=== PATIENT | female | born 1995 | race American Indian/Alaskan Native ===

== ENCOUNTER 2020-12-05 11:42 | Outpatient (CLI) | payer OTHER ==
[2020-12-05 12:50] LABS: Hematocrit 30.2 % (30.3-42.9); Hemoglobin 10.5 gm/dl (10.1-14.3); Mean Corpuscular HGB Conc 35 % (30-34); Mean Corpuscular Volume 91 fl (79-97); Platelet Count 330 K/mm3 (140-440); Red Cell Distribution Width 13.5 % (13.2-15.2)
[2020-12-05 13:17] LABS: Alanine Aminotransferase 9 units/L (7-56)
[2020-12-05 14:02] LABS: Bacteria,Urine 1+ /HPF (Negative); Bilirubin,Urine NEG (Negative); Blood,Urine NEG (Negative); Color,Urine Straw (Yellow); Protein,Urine <15 mg/dL mg/dL (Negative); Urobilinogen,Urine < 2.0 mg/dL (<2.0)
[2020-12-05 14:10] VITALS: BP 127/85
[2020-12-05 14:33] LABS: Uric Acid 4.7 mg/dL (3.5-7.6)
== END 2020-12-05 14:38 | disposition home or self-care (01) ==
LOC: TRG 11:42 → APU 11:44 → TRG 14:38
PROVIDERS: ATTEND Obstetrics & Gynecology
DX: O26.893 Other specified pregnancy related conditions, third trimester (principal); R60.0 Localized edema; M54.5 Low back pain; Z3A.32 32 weeks gestation of pregnancy
CPT/HCPCS: 36415; 59025; 81001; 82565; 83615; 84450; 84460; 84550; 85027

== ENCOUNTER 2020-12-17 16:11 | Observation (INO) | payer BC, OTHER ==
[2020-12-17] MEDS ORDERED: LACTATED RINGERS 500 ML IV ONE (18:31)
[2020-12-17 18:42] LABS: Bilirubin,Urine NEG (Negative); Blood,Urine NEG (Negative); Color,Urine Yellow (Yellow); Mucus,Urine FEW /HPF
[2020-12-17 18:45] LABS: Creatinine,Urine 180.9 mg/dL (0.1-20.0); Protein/Creatinine Ratio,Urine 0.16
--- NOTE | 2020-12-17 18:47 | History and Physical Report ---
History of Present Illness Date of examination: 12/17/20 Chief complaint: lower extremity swelling History of present illness: 25yo at 34w1d presents with lower extremity swelling. She denies TIJERINA, RUQ pain, or changes to vision. Swelling significantly worsened over the last 2-3 days. No additional complaints. Past History Past Medical History: no pertinent history Past Surgical History: no surgical history Social history: no significant social history - Obstetrical History Expected Date of Delivery: 01/27/21 Actual Gestation: 34 Week(s) 1 Day(s) : 1 Medications and Allergies Allergies Allergy/AdvReac Type Severity Reaction Status Date / Time No Known Allergies Allergy Unverified 12/05/20 12:14 Active Meds: Active Medications Lactated Ringer's (Lactated Ringers) 500 mls @ 999 mls/hr IV BOLUS ONE Stop: 12/17/20 19:01 Review of Systems Musculoskeletal: other (swelling) - Vital Signs Vital signs: Vital Signs Pulse BP 106 H 129/81 12/17/20 17:18 12/17/20 17:18 Temp Pulse Resp BP Pulse Ox 98.1 F 98 H 16 134/95 12/17/20 17:30 12/17/20 18:30 12/17/20 17:30 12/17/20 18:30 - Physical Exam Cardiovascular: Regular rate Lungs: Positive: Clear to auscultation Abdomen: Positive: normal appearance, soft Uterus: Positive: other (gravid) Extremities: Positive: edema - Obstetrical FHR: auscultation normal Uterine Contraction Monitor Mode: External Uterine Contraction Pattern: Absent Results Result Diagrams: 12/17/20 18:59 12/17/20 18:59 All other labs normal. Assessment and Plan - Patient Problems (1) Elevated blood pressure affecting in third trimester, antepartum Current Visit: Yes Status: Acute Plan to address problem: Ghtn vs PreEclampsia vs PreEclampsia with SF -no hx of hypertension this -assymptomatic for s/s of Severe features -PIH labs/protein-creatine ratio/24hr urine -continuous monitoring -consider Beta if indicated -23h obs PNC: per [facility] Labs on chart.
[2020-12-17 19:41] LABS: Alanine Aminotransferase 12 units/L (7-56); Uric Acid 5.2 mg/dL (3.5-7.6)
[2020-12-17 19:42] LABS: Hematocrit 33.4 % (30.3-42.9); Hemoglobin 11.2 gm/dl (10.1-14.3); Mean Corpuscular HGB Conc 34 % (30-34); Mean Corpuscular Volume 93 fl (79-97); Platelet Count 358 K/mm3 (140-440); Red Cell Distribution Width 13.6 % (13.2-15.2)
[2020-12-18] MEDS: BETAMET ACET/BETAMET NA PH 6 MG/ML INJ 5 ML MDV IM SCH (09:17)
--- NOTE | 2020-12-18 13:04 | Progress Note ---
Assessment and Plan A: IUP at 34w2d s/p 1 dose of betamethasone Gestational Hypertension vs Preeclampsia undergoing 24 hour urine collection P: Follow up 24 hour urine collection this evening (complete at 1845 pm) Pt desires to go home tonight if possible and return for second dose of betamethasone tomorrow morning Subjective - Subjective Date of service: 12/18/20 Principal diagnosis: GHTN rule out preeclampsia, IUP at 34w2d Interval history: Pt without complaints- denies headache, blurry vision, RUQ pain or scotomata. No obstetric complaints. Patient reports: movement normal, no new complaints, no loss of fluid, no vaginal bleeding, no contractions Objective - Vital Signs Vital Signs: Vital Signs - 12hr 12/18/20 12/18/20 12/18/20 01:04 01:08 01:13 Temperature Pulse Rate 87 83 85 Blood Pressure 129/88 O2 Sat by Pulse 98 97 Oximetry 12/18/20 12/18/20 12/18/20 01:19 01:22 01:24 Temperature 97.7 F Pulse Rate 86 85 90 Blood Pressure 132/83 O2 Sat by Pulse 99 97 Oximetry 12/18/20 12/18/20 12/18/20 01:29 01:34 01:39 Temperature Pulse Rate 89 89 88 Blood Pressure 123/79 O2 Sat by Pulse 97 96 97 Oximetry 12/18/20 12/18/20 12/18/20 01:44 01:49 01:54 Temperature Pulse Rate 92 H 94 H 88 Blood Pressure 125/82 O2 Sat by Pulse 98 97 97 Oximetry 12/18/20 12/18/20 12/18/20 01:59 02:11 02:13 Temperature Pulse Rate 94 H 88 103 H Blood Pressure 124/74 O2 Sat by Pulse 98 93 Oximetry 12/18/20 12/18/20 12/18/20 02:16 02:19 02:20 Temperature Pulse Rate 105 H 95 H 94 H Blood Pressure 129/94 O2 Sat by Pulse 98 94 Oximetry 12/18/20 12/18/20 12/18/20 02:21 02:26 02:31 Temperature Pulse Rate 89 85 82 Blood Pressure O2 Sat by Pulse 97 99 99 Oximetry 12/18/20 12/18/20 12/18/20 02:34 02:36 02:41 Temperature Pulse Rate 88 86 80 Blood Pressure 135/94 O2 Sat by Pulse 99 98 Oximetry 12/18/20 12/18/20 12/18/20 02:46 02:50 02:51 Temperature Pulse Rate 84 86 82 Blood Pressure 161/107 O2 Sat by Pulse 99 93 98 Oximetry 12/18/20 12/18/20 12/18/20 02:56 03:01 03:04 Temperature Pulse Rate 87 89 90 Blood Pressure 152/92 133/89 O2 Sat by Pulse 96 96 Oximetry 12/18/20 12/18/20 12/18/20 03:06 03:11 03:16 Temperature Pulse Rate 84 89 86 Blood Pressure O2 Sat by Pulse 98 95 96 Oximetry 12/18/20 12/18/20 12/18/20 03:19 03:21 03:26 Temperature Pulse Rate 82 81 85 Blood Pressure 124/85 O2 Sat by Pulse 97 96 Oximetry 12/18/20 12/18/20 12/18/20 03:31 03:34 03:36 Temperature Pulse Rate 85 87 87 Blood Pressure 116/80 O2 Sat by Pulse 96 93 96 Oximetry 12/18/20 12/18/20 12/18/20 03:41 03:46 03:49 Temperature Pulse Rate 88 86 87 Blood Pressure 130/81 O2 Sat by Pulse 95 96 92 Oximetry 12/18/20 12/18/20 12/18/20 03:51 03:56 03:58 Temperature Pulse Rate 89 98 H 90 Blood Pressure O2 Sat by Pulse 95 96 94 Oximetry 12/18/20 12/18/20 12/18/20 04:01 04:04 04:06 Temperature Pulse Rate 94 H 86 94 H Blood Pressure 132/87 O2 Sat by Pulse 96 96 Oximetry 12/18/20 12/18/20 12/18/20 04:11 04:16 04:19 Temperature Pulse Rate 91 H 91 H 92 H Blood Pressure 124/83 O2 Sat by Pulse 98 98 Oximetry 12/18/20 12/18/20 12/18/20 04:21 04:26 04:31 Temperature Pulse Rate 96 H 88 89 Blood Pressure O2 Sat by Pulse 98 98 98 Oximetry 12/18/20 12/18/20 12/18/20 04:34 04:36 04:41 Temperature Pulse Rate 91 H 87 88 Blood Pressure 126/87 O2 Sat by Pulse 98 98 Oximetry 12/18/20 12/18/20 12/18/20 04:46 04:49 04:51 Temperature Pulse Rate 85 83 92 H Blood Pressure 123/87 O2 Sat by Pulse 98 97 Oximetry 12/18/20 12/18/20 12/18/20 04:56 05:01 05:04 Temperature Pulse Rate 89 85 86 Blood Pressure 125/89 O2 Sat by Pulse 98 98 Oximetry 12/18/20 12/18/20 12/18/20 05:06 05:11 05:16 Temperature Pulse Rate 88 79 84 Blood Pressure O2 Sat by Pulse 98 97 96 Oximetry 12/18/20 12/18/20 12/18/20 05:19 05:21 05:26 Temperature Pulse Rate 88 85 86 Blood Pressure 115/81 O2 Sat by Pulse 97 97 Oximetry 12/18/20 12/18/20 12/18/20 05:31 05:34 05:36 Temperature Pulse Rate 83 87 82 Blood Pressure 130/85 O2 Sat by Pulse 98 98 Oximetry 12/18/20 12/18/20 12/18/20 05:41 05:46 05:49 Temperature Pulse Rate 94 H 82 87 Blood Pressure 128/83 O2 Sat by Pulse 98 98 Oximetry 12/18/20 12/18/20 12/18/20 05:51 05:56 06:01 Temperature Pulse Rate 86 106 H 81 Blood Pressure O2 Sat by Pulse 97 96 97 Oximetry 12/18/20 12/18/20 12/18/20 06:04 06:06 06:11 Temperature Pulse Rate 88 85 86 Blood Pressure 124/82 O2 Sat by Pulse 96 96 Oximetry 12/18/20 12/18/20 12/18/20 06:16 06:19 06:21 Temperature Pulse Rate 88 87 84 Blood Pressure 127/82 O2 Sat by Pulse 97 95 Oximetry 12/18/20 12/18/20 12/18/20 06:23 06:26 06:31 Temperature Pulse Rate 89 88 87 Blood Pressure O2 Sat by Pulse 94 96 97 Oximetry 12/18/20 12/18/20 12/18/20 06:34 06:36 06:41 Temperature Pulse Rate 88 87 89 Blood Pressure 124/81 O2 Sat by Pulse 97 98 Oximetry 12/18/20 12/18/20 12/18/20 06:46 06:49 06:51 Temperature Pulse Rate 90 85 88 Blood Pressure 127/88 O2 Sat by Pulse 97 97 Oximetry 12/18/20 12/18/20 12/18/20 06:56 07:01 07:04 Temperature Pulse Rate 89 89 90 Blood Pressure 121/89 O2 Sat by Pulse 96 97 Oximetry 12/18/20 12/18/20 12/18/20 07:06 07:11 07:16 Temperature Pulse Rate 84 89 93 H Blood Pressure O2 Sat by Pulse 97 97 97 Oximetry 12/18/20 12/18/20 12/18/20 07:19 07:21 07:26 Temperature Pulse Rate 88 90 89 Blood Pressure 120/87 O2 Sat by Pulse 97 97 Oximetry 12/18/20 12/18/20 12/18/20 07:31 07:34 07:36 Temperature Pulse Rate 86 90 102 H Blood Pressure 135/88 O2 Sat by Pulse 97 98 Oximetry 12/18/20 12/18/20 12/18/20 07:41 07:46 07:49 Temperature Pulse Rate 91 H 90 93 H Blood Pressure 120/82 O2 Sat by Pulse 97 97 Oximetry 12/18/20 12/18/20 12/18/20 07:51 07:56 08:01 Temperature Pulse Rate 97 H 90 88 Blood Pressure O2 Sat by Pulse 98 97 96 Oximetry 12/18/20 12/18/20 12/18/20 08:04 08:06 08:11 Temperature Pulse Rate 90 95 H 94 H Blood Pressure 131/84 O2 Sat by Pulse 97 96 Oximetry 12/18/20 12/18/20 12/18/20 08:16 08:19 08:21 Temperature Pulse Rate 94 H 90 106 H Blood Pressure 129/85 O2 Sat by Pulse 96 100 Oximetry 12/18/20 12/18/20 12/18/20 08:28 08:31 08:33 Temperature Pulse Rate 116 H 100 H 102 H Blood Pressure 122/87 O2 Sat by Pulse 95 98 Oximetry 12/18/20 12/18/20 12/18/20 08:34 08:38 08:43 Temperature Pulse Rate 104 H 108 H 103 H Blood Pressure 112/82 O2 Sat by Pulse 97 98 Oximetry 12/18/20 12/18/20 12/18/20 08:48 08:49 08:53 Temperature Pulse Rate 97 H 99 H 101 H Blood Pressure 139/91 O2 Sat by Pulse 98 98 Oximetry 12/18/20 12/18/20 12/18/20 08:58 09:03 09:04 Temperature Pulse Rate 93 H 107 H 96 H Blood Pressure O2 Sat by Pulse 97 98 89 Oximetry 12/18/20 12/18/20 12/18/20 09:05 09:08 09:13 Temperature Pulse Rate 97 H 100 H 99 H Blood Pressure 133/92 O2 Sat by Pulse 100 98 Oximetry 12/18/20 12/18/20 12/18/20 09:15 09:18 09:19 Temperature Pulse Rate 98 H 104 H 96 H Blood Pressure 125/78 O2 Sat by Pulse 93 98 Oximetry 12/18/20 12/18/20 12/18/20 09:23 09:28 09:33 Temperature Pulse Rate 100 H 99 H 111 H Blood Pressure O2 Sat by Pulse 98 99 97 Oximetry 12/18/20 12/18/20 12/18/20 09:34 09:38 09:43 Temperature Pulse Rate 102 H 98 H 100 H Blood Pressure 131/84 O2 Sat by Pulse 99 99 Oximetry 12/18/20 12/18/20 12/18/20 09:48 09:49 09:53 Temperature Pulse Rate 103 H 100 H 102 H Blood Pressure 132/87 O2 Sat by Pulse 97 98 Oximetry 12/18/20 12/18/20 12/18/20 09:58 10:03 10:04 Temperature Pulse Rate 100 H 94 H 96 H Blood Pressure 127/86 O2 Sat by Pulse 98 99 Oximetry 12/18/20 12/18/20 12/18/20 10:08 10:13 10:35 Temperature Pulse Rate 95 H 94 H 72 Blood Pressure 136/86 O2 Sat by Pulse 98 99 95 Oximetry 12/18/20 12/18/20 12/18/20 10:40 10:45 10:49 Temperature Pulse Rate 112 H 104 H 100 H Blood Pressure 130/80 O2 Sat by Pulse 98 97 Oximetry 12/18/20 12/18/20 12/18/20 10:50 10:55 11:00 Temperature Pulse Rate 98 H 101 H 97 H Blood Pressure O2 Sat by Pulse 98 97 96 Oximetry 12/18/20 12/18/20 12/18/20 11:04 11:05 11:10 Temperature Pulse Rate 97 H 95 H 96 H Blood Pressure 126/80 O2 Sat by Pulse 97 97 Oximetry 12/18/20 12/18/20 12/18/20 11:15 11:19 11:20 Temperature Pulse Rate 93 H 95 H 100 H Blood Pressure 127/84 O2 Sat by Pulse 98 95 Oximetry 12/18/20 12/18/20 12/18/20 11:25 11:30 11:33 Temperature Pulse Rate 105 H 95 H 103 H Blood Pressure O2 Sat by Pulse 96 96 93 Oximetry 12/18/20 12/18/20 12/18/20 11:34 11:35 11:40 Temperature Pulse Rate 96 H 95 H 91 H Blood Pressure 123/84 O2 Sat by Pulse 97 98 Oximetry 12/18/20 12/18/20 12/18/20 11:42 11:45 11:49 Temperature Pulse Rate 96 H 90 99 H Blood Pressure 120/84 O2 Sat by Pulse 94 97 Oximetry 12/18/20 12/18/20 12/18/20 11:50 11:55 12:00 Temperature Pulse Rate 102 H 97 H 96 H Blood Pressure O2 Sat by Pulse 97 96 97 Oximetry 12/18/20 12/18/20 12/18/20 12:04 12:05 12:10 Temperature Pulse Rate 86 84 96 H Blood Pressure 155/107 O2 Sat by Pulse 98 99 Oximetry 12/18/20 12/18/20 12/18/20 12:12 12:15 12:19 Temperature Pulse Rate 96 H 102 H 101 H Blood Pressure 138/86 137/83 O2 Sat by Pulse 98 Oximetry 12/18/20 12/18/20 12/18/20 12:20 12:25 12:30 Temperature Pulse Rate 106 H 103 H 97 H Blood Pressure O2 Sat by Pulse 97 97 98 Oximetry 12/18/20 12/18/20 12/18/20 12:34 12:35 12:36 Temperature Pulse Rate 100 H 106 H 112 H Blood Pressure 136/85 O2 Sat by Pulse 97 93 Oximetry 12/18/20 12/18/20 12/18/20 12:40 12:45 12:49 Temperature Pulse Rate 102 H 108 H 104 H Blood Pressure 130/81 O2 Sat by Pulse 96 98 Oximetry 12/18/20 12/18/20 12:50 12:55 Temperature Pulse Rate 111 H 113 H Blood Pressure O2 Sat by Pulse 97 96 Oximetry - Exam Breasts: deferred Abdomen: Present: soft (gravid ) FHR: auscultation normal - Labs Labs: Abnormal Labs 12/17/20 12/17/20 12/17/20 18:59 18:59 Unknown RBC 3.60 L Lactate Dehydrogenase 204 H Urine Creatinine 180.9 H Urine Total Protein 29 H Laboratory Results - last 24 hr 12/17/20 12/17/20 12/17/20 18:59 18:59 Unknown WBC 8.5 RBC 3.60 L Hgb 11.2 Hct 33.4 MCV 93 MCH 31 MCHC 34 RDW 13.6 Plt Count 358 Creatinine 0.6 Estimated GFR > 60 Uric Acid 5.2 AST 14 ALT 12 Lactate Dehydrogenase 204 H Urine Color Yellow Urine Turbidity Slightly-cloudy Urine pH 7.0 Ur Specific [place] 1.019 Urine Protein 30 mg/dl Urine Glucose (UA) Neg Urine Ketones Neg Urine Blood Neg Urine Nitrite Neg Urine Bilirubin Neg Urine Urobilinogen 2.0 Ur Leukocyte Esterase Sm Urine WBC (Auto) 2.0 Urine RBC (Auto) 1.0 U Epithel Cells (Auto) 11.0 Urine Mucus Few Urine Creatinine Protein/Creatinin Ratio Urine Total Protein 12/17/20 Unknown WBC RBC Hgb Hct MCV MCH MCHC RDW Plt Count Creatinine Estimated GFR Uric Acid AST ALT Lactate Dehydrogenase Urine Color Urine Turbidity Urine pH Ur Specific [place] Urine Protein Urine Glucose (UA) Urine Ketones Urine Blood Urine Nitrite Urine Bilirubin Urine Urobilinogen Ur Leukocyte Esterase Urine WBC (Auto) Urine RBC (Auto) U Epithel Cells (Auto) Urine Mucus Urine Creatinine 180.9 H Protein/Creatinin Ratio 0.16 Urine Total Protein 29 H
[2020-12-18 22:36] LABS: Bacteria,Urine 3+ /HPF (Negative); Bilirubin,Urine NEG (Negative); Blood,Urine SM (Negative); Color,Urine Yellow (Yellow); Mucus,Urine FEW /HPF; Urobilinogen,Urine < 2.0 mg/dL (<2.0)
[2020-12-19] MEDS ORDERED: ACETAMINOPHEN 500 MG TAB PO ONE (02:55)
[2020-12-19] MEDS ORDERED: SIMETHICONE 80 MG CHEW TAB PO ONE (02:56)
--- NOTE | 2020-12-19 07:52 | Progress Note ---
Assessment and Plan - Patient Problems (1) Elevated blood pressure affecting in third trimester, antepartum Current Visit: Yes Status: Acute Plan to address problem: Continue outpatient monitoring of preeclampsia Subjective - Subjective Date of service: 12/19/20 Principal diagnosis: GHTN rule out preeclampsia, IUP at 34w2d Interval history: 25-year-old G1, P0 at 34+ weeks admitted for rule out preeclampsia. The patient has significant improvement in her blood pressures on bedrest. She has completed her betamethasone steroid therapy. The 24-hour urine protein returned with 323 mg. She is currently without any complaints Patient reports: movement normal, no new complaints, no loss of fluid, no vaginal bleeding, no contractions Objective - Vital Signs Vital Signs: Vital Signs - 12hr 12/18/20 12/18/20 12/18/20 19:56 20:01 20:04 Temperature Pulse Rate 101 H 100 H 100 H Respiratory Rate Blood Pressure 129/76 Blood Pressure [Right] O2 Sat by Pulse 97 97 Oximetry 12/18/20 12/18/20 12/18/20 20:06 20:11 20:16 Temperature Pulse Rate 105 H 101 H 98 H Respiratory Rate Blood Pressure Blood Pressure [Right] O2 Sat by Pulse 96 95 96 Oximetry 12/18/20 12/18/20 12/18/20 20:19 20:21 20:22 Temperature 98.3 F Pulse Rate 94 H 96 H Respiratory 17 Rate Blood Pressure 155/91 134/88 Blood Pressure 134/88 [Right] O2 Sat by Pulse 91 96 Oximetry 12/18/20 12/18/20 12/18/20 20:24 20:26 20:31 Temperature Pulse Rate 105 H 96 H 95 H Respiratory Rate Blood Pressure Blood Pressure [Right] O2 Sat by Pulse 94 96 95 Oximetry 12/18/20 12/18/20 12/18/20 20:34 20:36 20:41 Temperature Pulse Rate 94 H 98 H 99 H Respiratory Rate Blood Pressure 133/89 Blood Pressure [Right] O2 Sat by Pulse 95 95 Oximetry 12/18/20 12/18/20 12/18/20 20:46 20:49 20:51 Temperature Pulse Rate 98 H 98 H 98 H Respiratory Rate Blood Pressure 132/85 Blood Pressure [Right] O2 Sat by Pulse 98 0 L 93 Oximetry 05/12/21 05/12/21 05/12/21 20:56 20:57 21:01 Temperature Pulse Rate 94 H 96 H 108 H Respiratory Rate Blood Pressure Blood Pressure [Right] O2 Sat by Pulse 94 94 96 Oximetry 12/18/20 12/18/20 12/18/20 21:04 21:06 21:11 Temperature Pulse Rate 103 H 100 H 97 H Respiratory Rate Blood Pressure 134/92 Blood Pressure [Right] O2 Sat by Pulse 94 97 98 Oximetry 12/18/20 12/18/20 12/18/20 22:05 22:19 22:29 Temperature Pulse Rate 108 H 104 H 102 H Respiratory Rate Blood Pressure 132/80 122/77 Blood Pressure [Right] O2 Sat by Pulse 91 Oximetry 12/18/20 12/18/20 12/18/20 22:34 22:39 22:44 Temperature Pulse Rate 102 H 95 H 107 H Respiratory Rate Blood Pressure 128/84 Blood Pressure [Right] O2 Sat by Pulse 96 97 98 Oximetry 12/18/20 12/18/20 12/18/20 22:49 22:54 22:59 Temperature Pulse Rate 95 H 111 H 103 H Respiratory Rate Blood Pressure 125/79 Blood Pressure [Right] O2 Sat by Pulse 96 96 96 Oximetry 12/18/20 12/18/20 12/18/20 23:04 23:09 23:14 Temperature Pulse Rate 96 H 102 H 98 H Respiratory Rate Blood Pressure 121/75 Blood Pressure [Right] O2 Sat by Pulse 96 96 97 Oximetry 12/18/20 12/18/20 12/18/20 23:19 23:24 23:29 Temperature Pulse Rate 88 89 85 Respiratory Rate Blood Pressure 135/82 Blood Pressure [Right] O2 Sat by Pulse 96 97 96 Oximetry 12/18/20 12/18/20 12/18/20 23:34 23:35 23:39 Temperature 97.9 F Pulse Rate 83 80 83 Respiratory 16 Rate Blood Pressure 137/92 Blood Pressure [Right] O2 Sat by Pulse 96 95 Oximetry 12/18/20 12/18/20 12/18/20 23:44 23:49 23:54 Temperature Pulse Rate 83 81 77 Respiratory Rate Blood Pressure 134/92 Blood Pressure [Right] O2 Sat by Pulse 97 96 95 Oximetry 12/18/20 12/19/20 12/19/20 23:59 00:02 00:04 Temperature Pulse Rate 86 86 83 Respiratory Rate Blood Pressure 127/86 Blood Pressure [Right] O2 Sat by Pulse 95 94 94 Oximetry 12/19/20 12/19/20 12/19/20 00:08 00:09 00:14 Temperature Pulse Rate 80 80 81 Respiratory Rate Blood Pressure Blood Pressure [Right] O2 Sat by Pulse 94 94 94 Oximetry 12/19/20 12/19/20 12/19/20 00:19 00:24 00:29 Temperature Pulse Rate 78 83 78 Respiratory Rate Blood Pressure 126/83 Blood Pressure [Right] O2 Sat by Pulse 94 94 94 Oximetry 12/19/20 12/19/20 12/19/20 00:33 00:34 00:38 Temperature Pulse Rate 78 79 79 Respiratory Rate Blood Pressure 123/82 Blood Pressure [Right] O2 Sat by Pulse 94 94 94 Oximetry 12/19/20 12/19/20 12/19/20 00:39 00:44 00:45 Temperature Pulse Rate 77 83 82 Respiratory Rate Blood Pressure Blood Pressure [Right] O2 Sat by Pulse 95 95 94 Oximetry 12/19/20 12/19/20 12/19/20 00:49 00:50 00:54 Temperature Pulse Rate 80 80 77 Respiratory Rate Blood Pressure 125/81 Blood Pressure [Right] O2 Sat by Pulse 95 94 96 Oximetry 12/19/20 12/19/20 12/19/20 00:57 00:59 01:02 Temperature Pulse Rate 79 82 86 Respiratory Rate Blood Pressure Blood Pressure [Right] O2 Sat by Pulse 94 95 94 Oximetry 12/19/20 12/19/20 12/19/20 01:04 01:09 01:12 Temperature Pulse Rate 80 95 H 80 Respiratory Rate Blood Pressure 127/82 Blood Pressure [Right] O2 Sat by Pulse 95 97 94 Oximetry 12/19/20 12/19/20 12/19/20 01:14 01:18 01:19 Temperature Pulse Rate 88 79 79 Respiratory Rate Blood Pressure Blood Pressure [Right] O2 Sat by Pulse 94 94 94 Oximetry 12/19/20 12/19/20 12/19/20 01:21 01:23 01:24 Temperature Pulse Rate 78 79 78 Respiratory Rate Blood Pressure 109/62 Blood Pressure [Right] O2 Sat by Pulse 94 95 Oximetry 12/19/20 12/19/20 12/19/20 01:29 01:34 01:35 Temperature Pulse Rate 75 76 84 Respiratory Rate Blood Pressure 113/65 Blood Pressure [Right] O2 Sat by Pulse 95 95 94 Oximetry 12/19/20 12/19/20 12/19/20 01:42 01:47 01:49 Temperature Pulse Rate 91 H 87 86 Respiratory Rate Blood Pressure 128/84 Blood Pressure [Right] O2 Sat by Pulse 98 97 Oximetry 12/19/20 12/19/20 12/19/20 01:52 01:57 02:02 Temperature Pulse Rate 83 86 84 Respiratory Rate Blood Pressure Blood Pressure [Right] O2 Sat by Pulse 97 97 96 Oximetry 12/19/20 12/19/20 12/19/20 02:04 02:07 02:12 Temperature Pulse Rate 85 86 87 Respiratory Rate Blood Pressure 136/89 Blood Pressure [Right] O2 Sat by Pulse 95 95 Oximetry 12/19/20 12/19/20 12/19/20 02:17 02:19 02:22 Temperature Pulse Rate 87 89 85 Respiratory Rate Blood Pressure 145/87 Blood Pressure [Right] O2 Sat by Pulse 96 96 Oximetry 12/19/20 12/19/20 12/19/20 02:27 02:32 02:34 Temperature Pulse Rate 84 92 H 90 Respiratory Rate Blood Pressure 148/95 Blood Pressure [Right] O2 Sat by Pulse 96 98 Oximetry 12/19/20 12/19/20 12/19/20 02:37 02:42 02:47 Temperature Pulse Rate 92 H 120 H 106 H Respiratory Rate Blood Pressure Blood Pressure [Right] O2 Sat by Pulse 96 97 97 Oximetry 12/19/20 12/19/20 12/19/20 02:49 02:52 02:57 Temperature Pulse Rate 99 H 90 88 Respiratory Rate Blood Pressure 138/84 Blood Pressure [Right] O2 Sat by Pulse 97 96 Oximetry 12/19/20 12/19/20 12/19/20 03:02 03:04 03:07 Temperature Pulse Rate 85 85 84 Respiratory Rate Blood Pressure 146/84 Blood Pressure [Right] O2 Sat by Pulse 96 97 Oximetry 12/19/20 12/19/20 12/19/20 03:13 03:18 03:19 Temperature Pulse Rate 87 86 84 Respiratory Rate Blood Pressure 132/79 Blood Pressure [Right] O2 Sat by Pulse 97 96 Oximetry 12/19/20 12/19/20 12/19/20 03:23 03:28 03:33 Temperature Pulse Rate 81 79 83 Respiratory Rate Blood Pressure Blood Pressure [Right] O2 Sat by Pulse 96 98 97 Oximetry 12/19/20 12/19/20 12/19/20 03:34 03:38 03:43 Temperature Pulse Rate 86 83 84 Respiratory Rate Blood Pressure 134/84 Blood Pressure [Right] O2 Sat by Pulse 98 97 Oximetry 12/19/20 12/19/20 12/19/20 03:48 03:49 03:53 Temperature Pulse Rate 80 82 80 Respiratory Rate Blood Pressure 138/85 Blood Pressure [Right] O2 Sat by Pulse 97 98 Oximetry 12/19/20 12/19/20 12/19/20 03:58 04:03 04:05 Temperature Pulse Rate 84 79 77 Respiratory Rate Blood Pressure 160/75 Blood Pressure [Right] O2 Sat by Pulse 97 98 Oximetry 12/19/20 12/19/20 12/19/20 04:08 04:13 04:18 Temperature Pulse Rate 79 81 79 Respiratory Rate Blood Pressure Blood Pressure [Right] O2 Sat by Pulse 97 97 97 Oximetry 12/19/20 12/19/20 12/19/20 04:19 04:23 04:28 Temperature Pulse Rate 78 79 80 Respiratory Rate Blood Pressure 140/80 Blood Pressure [Right] O2 Sat by Pulse 100 99 Oximetry 12/19/20 12/19/20 12/19/20 04:33 04:34 04:38 Temperature Pulse Rate 80 84 67 Respiratory Rate Blood Pressure 145/83 Blood Pressure [Right] O2 Sat by Pulse 97 87 Oximetry 12/19/20 12/19/20 12/19/20 04:43 04:44 04:48 Temperature Pulse Rate 89 89 85 Respiratory Rate Blood Pressure Blood Pressure [Right] O2 Sat by Pulse 95 94 96 Oximetry 12/19/20 12/19/20 12/19/20 04:49 04:53 04:58 Temperature Pulse Rate 93 H 86 82 Respiratory Rate Blood Pressure 134/83 Blood Pressure [Right] O2 Sat by Pulse 96 96 Oximetry 12/19/20 12/19/20 12/19/20 04:59 05:03 05:04 Temperature 98.9 F Pulse Rate 80 82 Respiratory 15 Rate Blood Pressure 144/81 Blood Pressure [Right] O2 Sat by Pulse 98 Oximetry 12/19/20 12/19/20 12/19/20 05:08 05:13 05:18 Temperature Pulse Rate 87 84 78 Respiratory Rate Blood Pressure Blood Pressure [Right] O2 Sat by Pulse 97 97 96 Oximetry 12/19/20 12/19/20 12/19/20 05:20 05:23 05:28 Temperature Pulse Rate 94 H 91 H 86 Respiratory Rate Blood Pressure 131/79 Blood Pressure [Right] O2 Sat by Pulse 95 95 Oximetry 12/19/20 12/19/20 12/19/20 05:33 05:35 05:38 Temperature Pulse Rate 87 93 H 78 Respiratory Rate Blood Pressure 129/70 Blood Pressure [Right] O2 Sat by Pulse 95 97 Oximetry 12/19/20 12/19/20 12/19/20 05:43 05:48 05:49 Temperature Pulse Rate 89 90 88 Respiratory Rate Blood Pressure 132/78 Blood Pressure [Right] O2 Sat by Pulse 97 97 Oximetry 12/19/20 12/19/20 12/19/20 05:53 05:58 06:03 Temperature Pulse Rate 79 85 81 Respiratory Rate Blood Pressure Blood Pressure [Right] O2 Sat by Pulse 97 97 97 Oximetry 12/19/20 12/19/20 12/19/20 06:04 06:08 06:13 Temperature Pulse Rate 79 92 H 99 H Respiratory Rate Blood Pressure 146/82 Blood Pressure [Right] O2 Sat by Pulse 96 96 Oximetry 12/19/20 12/19/20 12/19/20 06:18 06:19 06:23 Temperature Pulse Rate 83 78 78 Respiratory Rate Blood Pressure 130/79 Blood Pressure [Right] O2 Sat by Pulse 95 94 95 Oximetry 12/19/20 12/19/20 12/19/20 06:24 06:28 06:33 Temperature Pulse Rate 82 82 106 H Respiratory Rate Blood Pressure Blood Pressure [Right] O2 Sat by Pulse 93 98 98 Oximetry 12/19/20 12/19/20 12/19/20 06:35 06:38 06:39 Temperature Pulse Rate 92 H 95 H 92 H Respiratory Rate Blood Pressure 130/70 Blood Pressure [Right] O2 Sat by Pulse 95 94 Oximetry 12/19/20 12/19/20 12/19/20 06:43 06:44 06:48 Temperature Pulse Rate 92 H 86 95 H Respiratory Rate Blood Pressure Blood Pressure [Right] O2 Sat by Pulse 96 94 95 Oximetry 12/19/20 12/19/20 12/19/20 06:49 06:50 06:53 Temperature Pulse Rate 87 83 87 Respiratory Rate Blood Pressure 127/74 Blood Pressure [Right] O2 Sat by Pulse 94 95 Oximetry 12/19/20 12/19/20 12/19/20 06:58 07:03 07:04 Temperature Pulse Rate 90 77 80 Respiratory Rate Blood Pressure 126/71 Blood Pressure [Right] O2 Sat by Pulse 98 96 Oximetry 12/19/20 12/19/20 12/19/20 07:08 07:13 07:18 Temperature Pulse Rate 78 76 75 Respiratory Rate Blood Pressure Blood Pressure [Right] O2 Sat by Pulse 96 96 96 Oximetry 12/19/20 12/19/20 12/19/20 07:19 07:23 07:28 Temperature Pulse Rate 76 75 75 Respiratory Rate Blood Pressure 124/67 Blood Pressure [Right] O2 Sat by Pulse 97 96 Oximetry 12/19/20 12/19/20 12/19/20 07:33 07:35 07:38 Temperature Pulse Rate 76 76 77 Respiratory Rate Blood Pressure 128/80 Blood Pressure [Right] O2 Sat by Pulse 95 95 Oximetry 12/19/20 12/19/20 12/19/20 07:42 07:43 07:48 Temperature Pulse Rate 77 81 79 Respiratory Rate Blood Pressure Blood Pressure [Right] O2 Sat by Pulse 94 95 98 Oximetry - Labs Labs: Abnormal Labs 12/17/20 12/17/20 12/17/20 18:59 18:59 Unknown RBC 3.60 L Lactate Dehydrogenase 204 H Urine Creatinine 180.9 H Ur Total Protein 24 Hr Urine Total Protein 29 H 12/18/20 18:45 RBC Lactate Dehydrogenase Urine Creatinine Ur Total Protein 24 Hr 323.00 H Urine Total Protein 17 H Laboratory Results - last 24 hr 12/18/20 12/18/20 12/18/20 09:20 18:45 22:00 Urine Color Yellow Urine Turbidity Slightly-cloudy Urine pH 7.0 Ur Specific Sullivan 1.025 Urine Protein 30 mg/dl Urine Glucose (UA) >=500 Urine Ketones Tr Urine Blood Sm Urine Nitrite Neg Urine Bilirubin Neg Urine Urobilinogen < 2.0 Ur Leukocyte Esterase Tr Urine WBC (Auto) 4.0 Urine RBC (Auto) 8.0 U Epithel Cells (Auto) 11.0 Urine Bacteria (Auto) 3+ Urine Mucus Few Urine Total Volume 1900 Ur Total Protein 24 Hr 323.00 H Urine Total Protein 17 H Coronavirus (PCR) Negative
--- NOTE | 2020-12-19 07:54 | Discharge Summary ---
Providers - Providers Date of Admission: 12/17/20 17:31 Date of discharge: 12/19/20 Attending physician: MARVA ALVAREZ MD Primary care physician: MARVA ALVAREZ MD Hospitalization Reason for admission: other (Elevated blood pressures in third trimester) Procedure: other (Nonstress test) Discharge diagnosis: other (Elevated blood pressures in third trimester) Hospital course: The patient was admitted for elevated blood pressures. She received serial blood pressure monitoring and betamethasone therapy. 24-hour urine was consisted of 323 mg of protein. The patient had no significant complaints and was discharged home on outpatient basis Condition at discharge: Good Disposition: DC-01 TO HOME OR SELFCARE - Discharge Diagnoses (1) Elevated blood pressure affecting in third trimester, antepartum Status: Acute Plan - Provider Discharge Summary Activity: no heavy lifting 4 weeks, no strenuous exercise Diet: routine Instructions: routine Additional instructions: [] Smoking cessation referral if applicable(refer to patient education folder for contact #) [] Refer to [facility] Booklet Call your doctor immediately for: * Fever > 100.5 * Heavy vaginal bleeding ( >1 pad per hour) * Severe persistent headache * Shortness of breath * Reddened, hot, painful area to leg or breast * Schedule OB visit next week - Follow up plan
[2020-12-19 09:35] VITALS: BP 119/59
[2020-12-19] MEDS: BETAMET ACET/BETAMET NA PH 6 MG/ML INJ 5 ML MDV IM SCH (09:39)
== END 2020-12-19 10:23 | disposition home or self-care (01) ==
LOC: APU 16:11 → TRG 16:11 → LD 17:31
PROVIDERS: ADMIT Obstetrics & Gynecology; ATTEND Obstetrics & Gynecology
DX: O26.893 Other specified pregnancy related conditions, third trimester (principal); Z20.822 Contact with and (suspected) exposure to COVID-19; R03.0 Elevated blood-pressure reading, without diagnosis of hypertension; Z3A.34 34 weeks gestation of pregnancy
CPT/HCPCS: 36415; 59025; 81001; 82565; 82570; 83615; 84156; 84450; 84460; 84550; 85027; 96372; G0378; J0702; U0003

== ENCOUNTER 2021-01-07 15:26 | Inpatient (IN) | payer BC, OTHER ==
[2021-01-07] MEDS ORDERED: MINERAL OIL 30 ML ORAL LIQD PO PRN (17:43)
[2021-01-07] MEDS ORDERED: DINOPROSTONE 10 MG VAG SUPP VG NR (17:43)
[2021-01-07] MEDS ORDERED: NALOXONE 0.4 MG/1 ML INJ IV PRN (17:43)
[2021-01-07] MEDS ORDERED: ePHEDrine SULFATE 50 MG/1 ML INJ IV PRN (17:43)
[2021-01-07] MEDS ORDERED: ONDANSETRON 4 MG/2 ML INJ IV PRN (17:43)
[2021-01-07] MEDS ORDERED: LOPERAMIDE 2 MG CAP PO PRN (17:43)
[2021-01-07] MEDS ORDERED: BUTORPHANOL 2 MG/1 ML INJ IV PRN ×2 (17:43)
[2021-01-07] MEDS ORDERED: ACETAMINOPHEN 325 MG TAB PO PRN (17:43)
[2021-01-07] MEDS ORDERED: fentaNYL 100 MCG/2 ML INJ IV PRN (17:43)
[2021-01-07] MEDS ORDERED: TERBUTALINE 1 MG/1 ML INJ SUB-Q PRN (17:43)
[2021-01-07] MEDS ORDERED: AMPICILLIN/NS 2 GM/100 ML 2 GM/100 ML BAG IV ONE (17:43)
[2021-01-07] MEDS ORDERED: CARBOPROST TROMETHAMINE 250 MCG/1 ML INJ IM PRN (17:43)
[2021-01-07] MEDS ORDERED: LIDOCAINE (2%) 20 MG/1 ML VIAL 20 ML MDV INFILTRATI ONE (17:43)
[2021-01-07] MEDS ORDERED: OXYTOCIN 10 UNIT/1 ML INJ IM PRN (17:43)
[2021-01-07] MEDS ORDERED: miSOPROStol 200 MCG TAB PR PRN (17:43)
[2021-01-07] MEDS ORDERED: OXYTOCIN DRIP 30 UNITS/500 ML BAG IV SCH (18:00)
[2021-01-07] MEDS: LACTATED RINGERS 1,000 ML IV SCH (18:21)
[2021-01-07 18:29] LABS: Hematocrit 33.9 % (30.3-42.9); Mean Corpuscular HGB Conc 32 % (30-34); Mean Corpuscular Volume 92 fl (79-97); Red Blood Count 3.69 M/mm3 (3.65-5.03); Red Cell Distribution Width 14.1 % (13.2-15.2)
[2021-01-07 18:30] LABS: Platelet Count 360 K/mm3 (140-440)
[2021-01-07 18:44] LABS: Alanine Aminotransferase 15 units/L (7-56); Uric Acid 5.5 mg/dL (3.5-7.6)
[2021-01-07 19:11] LABS: Bacteria,Urine 2+ /HPF (Negative); Bilirubin,Urine NEG (Negative); Blood,Urine NEG (Negative); Color,Urine Yellow (Yellow); Mucus,Urine 2+ /HPF
[2021-01-07] MEDS: AMPICILLIN/NS 1 GM/50 ML 1 GM/50 ML BAG IV SCH (23:03)
[2021-01-08] MEDS: LACTATED RINGERS 1,000 ML IV SCH ×2 (02:33→11:29)
[2021-01-08] MEDS: AMPICILLIN/NS 1 GM/50 ML 1 GM/50 ML BAG IV SCH ×4 (02:33→18:14)
--- NOTE | 2021-01-08 08:08 | History and Physical Report ---
History of Present Illness Date of examination: 01/08/21 Date of admission: 01/07/21 15:26 Chief complaint: Induction of labor secondary to Pre-eclampsia History of present illness: 25yo, G1 @ 37.2 wks, initiated care with [facility] at 16.1 weeks gestation. Her has been complicated by pre-eclampsia (24hr urine protein - 323mg, co-managed by [facility] specialist), HSV2 seropositive status and GBS positive. She presents to [facility] on 01/07/2021 for scheduled IOL. Reports positive FM. Denies any VB or LOF. Labs: A+, antibody negative; HBsAg/ HCab non-reactive; HIV non-reactive; RPR non- reactive; GC/Chlamydia/Trich negative; 1 hr gtt - 82; GBS positive. Past History Past Medical History: no pertinent history Past Surgical History: no surgical history [employer] History: other (HSV2 ) Family/Genetic History: none Social history: single, full code. denies: smoking, alcohol abuse, prescription drug abuse, IV drug use - Obstetrical History Expected Date of Delivery: 01/27/21 Actual Gestation: 37 Week(s) 2 Day(s) : 1 Para: 0 Hx # Term Pregnancies: 0 Number of Pregnancies: 0 Spontaneous Abortions: 0 Induced : 0 Number of Living Children: 0 Medications and Allergies Allergies Allergy/AdvReac Type Severity Reaction Status Date / Time No Known Allergies Allergy Verified 01/07/21 16:55 Home Medications Medication Instructions Recorded Confirmed Last Taken Type One Daily Tablet 1 tab PO DAILY 12/18/20 01/07/21 2 Days Ago History ~01/05/21 Active Meds: Active Medications Acetaminophen (Acetaminophen 325 Mg Tab) 650 mg PO Q4H PRN PRN Reason: Pain, Mild (1-3) Butorphanol Tartrate (Butorphanol 2 Mg/1 Ml Inj) 1 mg IV Q2H PRN PRN Reason: Pain, Moderate(4-6) LABOR PAIN Butorphanol Tartrate (Butorphanol 2 Mg/1 Ml Inj) 2 mg IV Q2H PRN PRN Reason: Pain , Severe (7-10) Carboprost Tromethamine (Carboprost Tromethamine 250 Mcg/1 Ml Inj) 250 mcg IM ONCE PRN PRN Reason: Uterine Bleeding Dinoprostone (Dinoprostone 10 Mg Vag Supp) 10 mg VG ONCE NR Stop: 01/08/21 17:42 Last Admin: 01/07/21 19:00 Dose: 10 mg Documented by: Ephedrine Sulfate (Ephedrine Sulfate 50 Mg/1 Ml Inj) 10 mg IV Q2M PRN PRN Reason: Hypotension Fentanyl (Fentanyl 100 Mcg/2 Ml Inj) 100 mcg IV Q2H PRN PRN Reason: Pain,Severe (7-10) LABOR PAIN Oxytocin/Sodium Chloride (Pitocin/Ns 30 Unit/500ml) 30 units in 500 mls @ 2 mls/hr IV TITR KAT; Protocol Lactated Ringer's (Lactated Ringers) 1,000 mls @ 125 mls/hr IV DIRECT KAT Last Admin: 01/08/21 02:33 Dose: 125 mls/hr Documented by: Oxytocin/Sodium Chloride (Pitocin/Ns 30 Unit/500ml) 30 units in 500 mls @ 40 mls/hr IV TITR KAT; Protocol Ampicillin Sodium (Ampicillin/Ns 1 Gm/50 Ml) 1 gm in 50 mls @ 100 mls/hr IV Q4H KAT; Protocol Last Admin: 01/08/21 06:22 Dose: 100 mls/hr Documented by: Labetalol HCl (Labetalol 200 Mg Tab) 200 mg PO BID KAT Loperamide HCl (Loperamide 2 Mg Cap) 2 mg PO ONCE PRN PRN Reason: give with Hemabate Mineral Oil (Mineral Oil 30 Ml Oral Liqd) 30 ml PO QHS PRN PRN Reason: Constipation Misoprostol (Misoprostol 200 Mcg Tab) 800 mcg WI ONCE PRN PRN Reason: Uterine Bleeding Naloxone HCl (Naloxone 0.4 Mg/1 Ml Inj) 0.1 mg IV Q2MIN PRN PRN Reason: Res Rate </= 8 or 02 SAT < 92% Ondansetron HCl (Ondansetron 4 Mg/2 Ml Inj) 4 mg IV Q8H PRN PRN Reason: Nausea And Vomiting Oxytocin (Oxytocin 10 Unit/1 Ml Inj) 10 unit IM ONCE PRN PRN Reason: Uterine Bleeding Terbutaline Sulfate (Terbutaline 1 Mg/1 Ml Inj) 0.25 mg SUB-Q ONCE PRN PRN Reason: Hyperstimulation/Hypertonicity Review of Systems All systems: negative - Vital Signs Vital signs: Vital Signs Pulse Pulse Ox 58 L 83 L 01/07/21 15:57 01/07/21 15:57 Temp Pulse Resp BP Pulse Ox 98.3 F 77 20 161/93 100 01/08/21 07:12 01/08/21 07:52 01/08/21 07:12 01/08/21 07:36 01/08/21 07:52 - Physical Exam Breasts: Positive: normal Cardiovascular: Regular rate Lungs: Positive: Normal air movement Abdomen: Positive: other (gravid) Genitourinary (Female): Positive: normal external genitalia, normal perenium Uterus: Positive: enlarged (S=D) Deep Tendon Reflex Grade: Normal +2 - Obstetrical FHR: category 1 Uterine Contraction Monitor Mode: External Cervical Dilatation: 2 (per RN) Cervical Effacement Percentage: 60 station: -3 Uterine Contraction Frequency (min): 5-9 Uterine Contraction Pattern: Irregular Uterine Tone Measurement Phase: Resting Uterine Contraction Intensity: Mild Results Result Diagrams: 01/07/21 17:04 01/07/21 17:04 Abnormal lab results 01/07/21 01/07/21 Range/Units 17:04 18:15 AST < 5 L (5-40) units/L Lactate Dehydrogenase 744 H (91-180) units/L U Epithel Cells (Auto) 22.0 H (0-13.0) /HPF All other labs normal. Assessment and Plan - Patient Problems (1) Encounter for induction of labor Current Visit: Yes Status: Acute Plan to address problem: Admited to L & D on 01/07/21 Cervidil removed at 0700 on 01/08/21 Shower/ eat bkft Initiate Pitocin titration as tolerated Pain meds as desired Anticipate (2) Pre-eclampsia affecting , antepartum Current Visit: Yes Status: Acute Plan to address problem: B/Ps elevating Initiate Labetalol 200mg BID Notify provider for SBP > 160; DBP > 110 (3) Positive GBS test Current Visit: Yes Status: Acute Plan to address problem: Initiate GBS protocol (4) HSV-2 seropositive Current Visit: Yes Status: Acute
--- NOTE | 2021-01-08 16:51 | Progress Note ---
Assessment and Plan - Patient Problems (1) Encounter for induction of labor Current Visit: Yes Status: Acute Plan to address problem: Cervix unchanged Stop Pitocin, may eat Restart Low-dose Pitocin (max of 4mu/min) overnight Pain meds as desired Anticipate (2) Pre-eclampsia affecting , antepartum Current Visit: Yes Status: Acute Plan to address problem: Continue to monitor B/Ps Notify provider for SBP > 160; DBP > 110 (3) Positive GBS test Current Visit: Yes Status: Acute Plan to address problem: Continue GBS protocol (4) HSV-2 seropositive Current Visit: Yes Status: Acute Subjective - Subjective Date of service: 01/08/21 Principal diagnosis: IOL Interval history: 25yo, G1 @ 37.2 wks, initiated care with [facility] at 16.1 weeks gestation. Her has been complicated by pre-eclampsia (24hr urine protein - 323mg, co-managed by [facility] specialist), HSV2 seropositive status and GBS positive. She presents to [facility] on 01/07/2021 for scheduled IOL. Reports positive FM. Denies any VB or LOF. Labs: A+, antibody negative; HBsAg/ HCab non-reactive; HIV non-reactive; RPR non- reactive; GC/Chlamydia/Trich negative; 1 hr gtt - 82; GBS positive. Patient reports: movement normal, contractions (remains comfortable at this time), no new complaints, no loss of fluid, no vaginal bleeding Objective - Vital Signs Vital Signs: Vital Signs - 12hr 01/08/21 01/08/21 01/08/21 04:50 04:55 05:00 Temperature Pulse Rate 73 72 71 Respiratory Rate Blood Pressure Blood Pressure [Left] O2 Sat by Pulse 99 99 98 Oximetry 01/08/21 01/08/21 01/08/21 05:05 05:07 05:10 Temperature Pulse Rate 76 78 80 Respiratory Rate Blood Pressure 132/85 Blood Pressure [Left] O2 Sat by Pulse 99 98 Oximetry 01/08/21 01/08/21 01/08/21 05:15 05:20 05:25 Temperature Pulse Rate 75 82 71 Respiratory Rate Blood Pressure Blood Pressure [Left] O2 Sat by Pulse 99 96 98 Oximetry 01/08/21 01/08/21 01/08/21 05:30 05:35 05:37 Temperature Pulse Rate 76 74 77 Respiratory Rate Blood Pressure 125/85 Blood Pressure [Left] O2 Sat by Pulse 99 97 Oximetry 01/08/21 01/08/21 01/08/21 05:44 05:45 05:49 Temperature Pulse Rate 97 H 100 H 79 Respiratory Rate Blood Pressure Blood Pressure [Left] O2 Sat by Pulse 96 93 98 Oximetry 01/08/21 01/08/21 01/08/21 05:54 05:59 06:04 Temperature Pulse Rate 81 75 72 Respiratory Rate Blood Pressure Blood Pressure [Left] O2 Sat by Pulse 98 98 98 Oximetry 01/08/21 01/08/21 01/08/21 06:09 06:14 06:19 Temperature Pulse Rate 74 84 75 Respiratory Rate Blood Pressure Blood Pressure [Left] O2 Sat by Pulse 98 98 98 Oximetry 01/08/21 01/08/21 01/08/21 06:24 06:25 06:29 Temperature Pulse Rate 79 74 73 Respiratory Rate Blood Pressure 158/99 Blood Pressure [Left] O2 Sat by Pulse 99 98 Oximetry 01/08/21 01/08/21 01/08/21 06:34 06:38 06:39 Temperature Pulse Rate 80 78 82 Respiratory Rate Blood Pressure 134/92 Blood Pressure [Left] O2 Sat by Pulse 98 98 Oximetry 01/08/21 01/08/21 01/08/21 06:44 06:49 06:54 Temperature Pulse Rate 80 79 86 Respiratory Rate Blood Pressure Blood Pressure [Left] O2 Sat by Pulse 98 98 98 Oximetry 01/08/21 01/08/21 01/08/21 06:59 07:12 07:13 Temperature 98.3 F Pulse Rate 82 79 78 Respiratory 20 Rate Blood Pressure 142/92 Blood Pressure 142/92 [Left] O2 Sat by Pulse 99 99 Oximetry 01/08/21 01/08/21 01/08/21 07:17 07:22 07:27 Temperature Pulse Rate 77 77 82 Respiratory Rate Blood Pressure Blood Pressure [Left] O2 Sat by Pulse 99 98 98 Oximetry 01/08/21 01/08/21 01/08/21 07:32 07:36 07:37 Temperature Pulse Rate 75 74 77 Respiratory Rate Blood Pressure 161/93 Blood Pressure [Left] O2 Sat by Pulse 98 99 Oximetry 01/08/21 01/08/21 01/08/21 07:42 07:47 07:52 Temperature Pulse Rate 81 73 77 Respiratory Rate Blood Pressure Blood Pressure [Left] O2 Sat by Pulse 99 98 100 Oximetry 01/08/21 01/08/21 01/08/21 07:57 08:02 08:06 Temperature Pulse Rate 78 99 H 101 H Respiratory Rate Blood Pressure 140/82 Blood Pressure [Left] O2 Sat by Pulse 100 99 Oximetry 01/08/21 01/08/21 01/08/21 08:07 08:34 08:36 Temperature Pulse Rate 115 H 91 H 109 H Respiratory Rate Blood Pressure 131/80 Blood Pressure [Left] O2 Sat by Pulse 99 99 Oximetry 01/08/21 01/08/21 01/08/21 08:39 09:41 09:43 Temperature Pulse Rate 117 H 112 H 113 H Respiratory Rate Blood Pressure 120/60 Blood Pressure [Left] O2 Sat by Pulse 98 97 Oximetry 01/08/21 01/08/21 01/08/21 09:46 09:51 09:55 Temperature Pulse Rate 109 H 124 H 105 H Respiratory Rate Blood Pressure 120/60 Blood Pressure [Left] O2 Sat by Pulse 97 98 Oximetry 01/08/21 01/08/21 01/08/21 09:56 10:01 10:06 Temperature Pulse Rate 104 H 101 H 111 H Respiratory Rate Blood Pressure Blood Pressure [Left] O2 Sat by Pulse 97 97 97 Oximetry 01/08/21 01/08/21 01/08/21 10:11 10:13 10:16 Temperature Pulse Rate 101 H 101 H 101 H Respiratory Rate Blood Pressure 121/69 Blood Pressure [Left] O2 Sat by Pulse 97 96 Oximetry 01/08/21 01/08/21 01/08/21 10:21 10:26 10:31 Temperature Pulse Rate 107 H 97 H 104 H Respiratory Rate Blood Pressure Blood Pressure [Left] O2 Sat by Pulse 96 96 96 Oximetry 01/08/21 01/08/21 01/08/21 10:36 10:41 10:43 Temperature Pulse Rate 98 H 99 H 100 H Respiratory Rate Blood Pressure 116/73 Blood Pressure [Left] O2 Sat by Pulse 96 98 Oximetry 01/08/21 01/08/21 01/08/21 10:46 10:51 10:56 Temperature Pulse Rate 98 H 99 H 101 H Respiratory Rate Blood Pressure Blood Pressure [Left] O2 Sat by Pulse 97 97 97 Oximetry 06/02/21 06/02/21 06/02/21 11:01 11:06 11:11 Temperature Pulse Rate 102 H 105 H 95 H Respiratory Rate Blood Pressure Blood Pressure [Left] O2 Sat by Pulse 97 97 97 Oximetry 01/08/21 01/08/21 01/08/21 11:13 11:16 11:21 Temperature Pulse Rate 96 H 98 H 99 H Respiratory Rate Blood Pressure 111/66 Blood Pressure [Left] O2 Sat by Pulse 97 97 Oximetry 01/08/21 01/08/21 01/08/21 11:26 11:31 11:36 Temperature Pulse Rate 99 H 100 H 99 H Respiratory Rate Blood Pressure Blood Pressure [Left] O2 Sat by Pulse 98 98 98 Oximetry 01/08/21 01/08/21 01/08/21 11:41 11:43 11:46 Temperature Pulse Rate 102 H 97 H 100 H Respiratory Rate Blood Pressure 125/72 Blood Pressure [Left] O2 Sat by Pulse 98 98 Oximetry 01/08/21 01/08/21 01/08/21 11:51 11:56 12:01 Temperature Pulse Rate 101 H 94 H 101 H Respiratory Rate Blood Pressure Blood Pressure [Left] O2 Sat by Pulse 98 98 98 Oximetry 01/08/21 01/08/21 01/08/21 12:06 12:11 12:13 Temperature Pulse Rate 97 H 97 H 96 H Respiratory Rate Blood Pressure 120/71 Blood Pressure [Left] O2 Sat by Pulse 99 98 Oximetry 01/08/21 01/08/21 01/08/21 12:16 12:21 12:26 Temperature Pulse Rate 103 H 98 H 99 H Respiratory Rate Blood Pressure Blood Pressure [Left] O2 Sat by Pulse 99 99 98 Oximetry 01/08/21 01/08/21 01/08/21 12:31 12:36 12:41 Temperature Pulse Rate 91 H 94 H 95 H Respiratory Rate Blood Pressure Blood Pressure [Left] O2 Sat by Pulse 99 99 100 Oximetry 01/08/21 01/08/21 01/08/21 12:43 12:46 12:51 Temperature Pulse Rate 95 H 97 H 95 H Respiratory Rate Blood Pressure 134/78 Blood Pressure [Left] O2 Sat by Pulse 99 99 Oximetry 01/08/21 01/08/21 01/08/21 12:56 13:01 13:06 Temperature Pulse Rate 98 H 97 H 94 H Respiratory Rate Blood Pressure Blood Pressure [Left] O2 Sat by Pulse 99 98 98 Oximetry 01/08/21 01/08/21 01/08/21 13:11 13:14 13:16 Temperature Pulse Rate 96 H 91 H 96 H Respiratory Rate Blood Pressure 133/87 Blood Pressure [Left] O2 Sat by Pulse 98 100 Oximetry 01/08/21 01/08/21 01/08/21 13:21 13:26 13:31 Temperature Pulse Rate 93 H 97 H 97 H Respiratory Rate Blood Pressure Blood Pressure [Left] O2 Sat by Pulse 99 99 98 Oximetry 01/08/21 01/08/21 01/08/21 13:36 13:41 13:43 Temperature Pulse Rate 96 H 95 H 96 H Respiratory Rate Blood Pressure 125/75 Blood Pressure [Left] O2 Sat by Pulse 99 99 Oximetry 01/08/21 01/08/21 01/08/21 13:46 13:51 13:56 Temperature Pulse Rate 101 H 95 H 97 H Respiratory Rate Blood Pressure Blood Pressure [Left] O2 Sat by Pulse 98 98 98 Oximetry 01/08/21 01/08/21 01/08/21 14:01 14:06 14:11 Temperature Pulse Rate 96 H 98 H 89 Respiratory Rate Blood Pressure Blood Pressure [Left] O2 Sat by Pulse 98 97 98 Oximetry 01/08/21 01/08/21 01/08/21 14:13 14:16 14:21 Temperature Pulse Rate 93 H 95 H 92 H Respiratory Rate Blood Pressure 126/83 Blood Pressure [Left] O2 Sat by Pulse 99 99 Oximetry 01/08/21 01/08/21 01/08/21 14:33 14:38 14:43 Temperature Pulse Rate 94 H 94 H 96 H Respiratory Rate Blood Pressure 134/86 Blood Pressure [Left] O2 Sat by Pulse 100 97 99 Oximetry 01/08/21 01/08/21 01/08/21 14:48 14:53 14:58 Temperature Pulse Rate 89 95 H 91 H Respiratory Rate Blood Pressure Blood Pressure [Left] O2 Sat by Pulse 98 98 97 Oximetry 01/08/21 01/08/21 01/08/21 15:03 15:08 15:13 Temperature Pulse Rate 90 90 93 H Respiratory Rate Blood Pressure 132/80 Blood Pressure [Left] O2 Sat by Pulse 97 97 96 Oximetry 01/08/21 01/08/21 01/08/21 15:18 15:23 15:28 Temperature Pulse Rate 92 H 91 H 92 H Respiratory Rate Blood Pressure Blood Pressure [Left] O2 Sat by Pulse 97 96 97 Oximetry 01/08/21 01/08/21 01/08/21 15:33 15:38 15:43 Temperature Pulse Rate 90 91 H 88 Respiratory Rate Blood Pressure Blood Pressure [Left] O2 Sat by Pulse 98 98 98 Oximetry 01/08/21 01/08/21 01/08/21 15:45 15:48 15:53 Temperature Pulse Rate 91 H 91 H 90 Respiratory Rate Blood Pressure 128/74 Blood Pressure [Left] O2 Sat by Pulse 99 97 Oximetry 01/08/21 01/08/21 01/08/21 15:58 16:03 16:08 Temperature Pulse Rate 89 87 88 Respiratory Rate Blood Pressure Blood Pressure [Left] O2 Sat by Pulse 97 97 98 Oximetry 01/08/21 01/08/21 01/08/21 16:13 16:18 16:23 Temperature Pulse Rate 90 92 H 104 H Respiratory Rate Blood Pressure 134/85 Blood Pressure [Left] O2 Sat by Pulse 97 99 98 Oximetry 01/08/21 01/08/21 01/08/21 16:28 16:33 16:38 Temperature Pulse Rate 92 H 89 87 Respiratory Rate Blood Pressure Blood Pressure [Left] O2 Sat by Pulse 98 99 99 Oximetry 01/08/21 16:43 Temperature Pulse Rate 88 Respiratory Rate Blood Pressure 166/98 Blood Pressure [Left] O2 Sat by Pulse 99 Oximetry - Exam Breasts: deferred Cardiovascular: Regular rate Lungs: Normal air movement FHR: category 1 Uterine Contraction Monitor Mode: External Cervical Dilatation: 2 (per RN) Cervical Effacement Percentage: 60 (Pitocin @ 16 mu/min) station: -3 Uterine Contraction Frequency (min): 2-3 Uterine Contraction Pattern: Regular Uterine Tone Measurement Phase: Resting Uterine Contraction Intensity: Mild Extremities: edema - Labs Labs: Abnormal Labs 01/07/21 01/07/21 17:04 18:15 AST < 5 L Lactate Dehydrogenase 744 H U Epithel Cells (Auto) 22.0 H Laboratory Results - last 24 hr 01/07/21 01/07/21 01/07/21 17:04 17:04 17:04 WBC 9.7 RBC 3.69 Hgb 11.0 Hct 33.9 MCV 92 MCH 30 MCHC 32 RDW 14.1 Plt Count 360 Creatinine 0.6 Estimated GFR > 60 Uric Acid 5.5 AST < 5 L ALT 15 Lactate Dehydrogenase 744 H Urine Color Urine Turbidity Urine pH Ur Specific Otho Urine Protein Urine Glucose (UA) Urine Ketones Urine Blood Urine Nitrite Urine Bilirubin Urine Urobilinogen Ur Leukocyte Esterase Urine WBC (Auto) Urine RBC (Auto) U Epithel Cells (Auto) Urine Bacteria (Auto) Urine Mucus Syphilis IgG Antibody Nonreactive Coronavirus (PCR) Blood Type Antibody Screen 01/07/21 01/07/21 01/08/21 17:04 18:15 09:17 WBC RBC Hgb Hct MCV MCH MCHC RDW Plt Count Creatinine Estimated GFR Uric Acid AST ALT Lactate Dehydrogenase Urine Color Yellow Urine Turbidity Slightly-cloudy Urine pH 6.0 Ur Specific Otho 1.028 Urine Protein 100 mg/dl Urine Glucose (UA) Neg Urine Ketones Neg Urine Blood Neg Urine Nitrite Neg Urine Bilirubin Neg Urine Urobilinogen 2.0 Ur Leukocyte Esterase Tr Urine WBC (Auto) 5.0 Urine RBC (Auto) 3.0 U Epithel Cells (Auto) 22.0 H Urine Bacteria (Auto) 2+ Urine Mucus 2+ Syphilis IgG Antibody Coronavirus (PCR) Negative Blood Type A POSITIVE Antibody Screen Negative
[2021-01-09] MEDS ORDERED: hydrALAZINE 20 MG/1 ML INJ IV PRN (03:35)
[2021-01-09] MEDS: LACTATED RINGERS 1,000 ML IV SCH (05:54)
--- NOTE | 2021-01-09 08:37 | Progress Note ---
Assessment and Plan - Patient Problems (1) Encounter for induction of labor Current Visit: Yes Status: Acute Plan to address problem: May eat bkft Increase Pitocin as tolerated Will AROM when baby at good station Pain meds as desired Anticipate (2) Pre-eclampsia affecting , antepartum Current Visit: Yes Status: Acute Plan to address problem: Continue to monitor B/Ps Continue B/P meds as directed Notify provider for SBP > 160; DBP > 110 (3) Positive GBS test Current Visit: Yes Status: Acute Plan to address problem: Continue GBS protocol (4) HSV-2 seropositive Current Visit: Yes Status: Acute Subjective - Subjective Date of service: 01/09/21 Principal diagnosis: IOL; Pre-eclampsia Interval history: 25yo, G1 @ 37.2 wks, initiated care with [facility] at 16.1 weeks gestation. Her has been complicated by pre-eclampsia (24hr urine protein - 323mg, co-managed by [facility]), HSV2 seropositive status and GBS positive. She presents to [facility] on 01/07/2021 for scheduled IOL. Reports positive FM. Denies any VB or LOF. Labs: A+, antibody negative; HBsAg/ HCab non-reactive; HIV non-reactive; RPR non- reactive; GC/Chlamydia/Trich negative; 1 hr gtt - 82; GBS positive. Patient reports: movement normal, contractions (tolerable), no new complaints, no loss of fluid, no vaginal bleeding Objective - Vital Signs Vital Signs: Vital Signs - 12hr 01/08/21 01/08/21 01/08/21 21:16 21:23 21:24 Temperature Pulse Rate 112 H 109 H Respiratory Rate Blood Pressure Blood Pressure [Left] O2 Sat by Pulse 92 93 97 Oximetry 01/08/21 01/08/21 01/08/21 21:29 21:33 21:34 Temperature Pulse Rate 97 H 96 H 95 H Respiratory Rate Blood Pressure 136/90 Blood Pressure [Left] O2 Sat by Pulse 97 97 Oximetry 01/08/21 01/08/21 01/08/21 21:39 21:44 21:49 Temperature Pulse Rate 90 89 90 Respiratory Rate Blood Pressure Blood Pressure [Left] O2 Sat by Pulse 98 97 98 Oximetry 01/08/21 01/08/21 01/08/21 21:50 21:54 21:59 Temperature Pulse Rate 93 H 102 H 88 Respiratory Rate Blood Pressure 146/99 Blood Pressure [Left] O2 Sat by Pulse 98 98 Oximetry 01/08/21 01/08/21 01/08/21 22:04 22:09 22:14 Temperature Pulse Rate 95 H 92 H 93 H Respiratory Rate Blood Pressure 168/109 Blood Pressure [Left] O2 Sat by Pulse 98 98 97 Oximetry 01/08/21 01/08/21 01/08/21 22:19 22:24 22:29 Temperature Pulse Rate 97 H 92 H 96 H Respiratory Rate Blood Pressure Blood Pressure [Left] O2 Sat by Pulse 97 97 96 Oximetry 01/08/21 01/08/21 01/08/21 22:37 22:42 22:47 Temperature Pulse Rate 101 H 104 H 98 H Respiratory Rate Blood Pressure Blood Pressure [Left] O2 Sat by Pulse 98 96 96 Oximetry 01/08/21 01/08/21 01/08/21 22:49 22:52 22:57 Temperature Pulse Rate 99 H 98 H 101 H Respiratory Rate Blood Pressure 136/84 Blood Pressure [Left] O2 Sat by Pulse 95 96 Oximetry 01/08/21 01/08/21 01/08/21 23:02 23:07 23:12 Temperature Pulse Rate 100 H 101 H 97 H Respiratory Rate Blood Pressure 122/77 Blood Pressure [Left] O2 Sat by Pulse 97 96 96 Oximetry 01/08/21 01/08/21 01/08/21 23:17 23:22 23:27 Temperature Pulse Rate 102 H 101 H 120 H Respiratory Rate Blood Pressure Blood Pressure [Left] O2 Sat by Pulse 97 97 97 Oximetry 01/08/21 01/08/21 01/08/21 23:32 23:37 23:42 Temperature Pulse Rate 96 H 95 H 93 H Respiratory Rate Blood Pressure 120/79 Blood Pressure [Left] O2 Sat by Pulse 97 97 97 Oximetry 01/08/21 01/08/21 01/08/21 23:47 23:50 23:52 Temperature 98.3 F Pulse Rate 92 H 91 H Respiratory Rate Blood Pressure Blood Pressure [Left] O2 Sat by Pulse 97 97 Oximetry 01/08/21 01/09/21 01/09/21 23:57 00:02 00:07 Temperature Pulse Rate 90 89 88 Respiratory Rate Blood Pressure Blood Pressure [Left] O2 Sat by Pulse 97 97 96 Oximetry 01/09/21 01/09/21 01/09/21 00:12 00:13 00:17 Temperature Pulse Rate 86 87 88 Respiratory Rate Blood Pressure 140/93 Blood Pressure [Left] O2 Sat by Pulse 97 96 Oximetry 01/09/21 01/09/21 01/09/21 00:22 00:27 00:32 Temperature Pulse Rate 87 92 H 90 Respiratory Rate Blood Pressure Blood Pressure [Left] O2 Sat by Pulse 97 96 96 Oximetry 01/09/21 01/09/21 01/09/21 00:37 00:42 00:44 Temperature Pulse Rate 95 H 89 88 Respiratory Rate Blood Pressure 140/92 Blood Pressure [Left] O2 Sat by Pulse 96 96 Oximetry 01/09/21 01/09/21 01/09/21 00:47 00:52 00:57 Temperature Pulse Rate 91 H 90 89 Respiratory Rate Blood Pressure Blood Pressure [Left] O2 Sat by Pulse 97 97 97 Oximetry 01/09/21 01/09/21 01/09/21 01:02 01:07 01:12 Temperature Pulse Rate 89 89 88 Respiratory Rate Blood Pressure 124/80 Blood Pressure [Left] O2 Sat by Pulse 98 97 97 Oximetry 01/09/21 01/09/21 01/09/21 01:17 01:22 01:27 Temperature Pulse Rate 90 89 91 H Respiratory Rate Blood Pressure Blood Pressure [Left] O2 Sat by Pulse 97 97 97 Oximetry 01/09/21 01/09/21 01/09/21 01:32 01:37 01:42 Temperature Pulse Rate 89 89 88 Respiratory Rate Blood Pressure 147/92 Blood Pressure [Left] O2 Sat by Pulse 97 97 98 Oximetry 01/09/21 01/09/21 01/09/21 01:47 01:52 01:55 Temperature Pulse Rate 88 89 87 Respiratory Rate Blood Pressure Blood Pressure [Left] O2 Sat by Pulse 98 95 94 Oximetry 01/09/21 01/09/21 01/09/21 01:57 02:02 02:07 Temperature Pulse Rate 81 93 H 91 H Respiratory Rate Blood Pressure Blood Pressure [Left] O2 Sat by Pulse 97 97 97 Oximetry 01/09/21 01/09/21 01/09/21 02:12 02:22 02:27 Temperature Pulse Rate 88 94 H 90 Respiratory Rate Blood Pressure 173/113 Blood Pressure [Left] O2 Sat by Pulse 97 98 95 Oximetry 01/09/21 01/09/21 01/09/21 02:32 02:37 02:42 Temperature Pulse Rate 91 H 86 84 Respiratory Rate Blood Pressure 168/110 Blood Pressure [Left] O2 Sat by Pulse 97 98 91 Oximetry 01/09/21 01/09/21 01/09/21 02:47 02:52 02:57 Temperature Pulse Rate 82 88 82 Respiratory Rate Blood Pressure Blood Pressure [Left] O2 Sat by Pulse 97 97 97 Oximetry 01/09/21 01/09/21 01/09/21 03:02 03:07 03:12 Temperature Pulse Rate 85 82 81 Respiratory Rate Blood Pressure 179/121 Blood Pressure [Left] O2 Sat by Pulse 97 97 97 Oximetry 01/09/21 01/09/21 01/09/21 03:19 03:21 03:24 Temperature Pulse Rate 90 81 83 Respiratory Rate Blood Pressure 174/127 Blood Pressure [Left] O2 Sat by Pulse 98 98 Oximetry 01/09/21 01/09/21 01/09/21 03:29 03:34 03:39 Temperature Pulse Rate 84 87 82 Respiratory Rate Blood Pressure Blood Pressure [Left] O2 Sat by Pulse 98 99 97 Oximetry 01/09/21 01/09/21 01/09/21 03:42 03:43 03:44 Temperature Pulse Rate 85 82 88 Respiratory Rate Blood Pressure 180/119 Blood Pressure [Left] O2 Sat by Pulse 92 97 Oximetry 01/09/21 01/09/21 01/09/21 03:48 03:49 03:54 Temperature Pulse Rate 83 83 92 H Respiratory Rate Blood Pressure 178/115 178/115 Blood Pressure [Left] O2 Sat by Pulse 98 97 Oximetry 01/09/21 01/09/21 01/09/21 03:59 04:04 04:09 Temperature Pulse Rate 91 H 83 91 H Respiratory Rate Blood Pressure Blood Pressure [Left] O2 Sat by Pulse 96 97 96 Oximetry 01/09/21 01/09/21 01/09/21 04:12 04:14 04:24 Temperature Pulse Rate 87 87 96 H Respiratory Rate Blood Pressure 164/112 Blood Pressure [Left] O2 Sat by Pulse 91 96 98 Oximetry 01/09/21 01/09/21 01/09/21 04:29 04:34 04:40 Temperature Pulse Rate 93 H 89 91 H Respiratory Rate Blood Pressure Blood Pressure [Left] O2 Sat by Pulse 97 97 97 Oximetry 01/09/21 01/09/2101/09/21 04:42 04:45 04:50 Temperature Pulse Rate 87 89 94 H Respiratory Rate Blood Pressure 164/110 Blood Pressure [Left] O2 Sat by Pulse 90 97 97 Oximetry 01/09/21 01/09/21 01/09/21 04:55 05:05 05:10 Temperature Pulse Rate 93 H 95 H 90 Respiratory Rate Blood Pressure Blood Pressure [Left] O2 Sat by Pulse 97 97 98 Oximetry 01/09/21 01/09/21 01/09/21 05:12 05:15 05:20 Temperature Pulse Rate 91 H 86 90 Respiratory Rate Blood Pressure 140/97 Blood Pressure [Left] O2 Sat by Pulse 91 97 97 Oximetry 01/09/21 01/09/21 01/09/21 05:23 05:25 05:30 Temperature 98.0 F Pulse Rate 89 87 85 Respiratory 16 Rate Blood Pressure Blood Pressure 140/97 [Left] O2 Sat by Pulse 98 98 98 Oximetry 01/09/21 01/09/21 01/09/21 05:35 05:40 05:42 Temperature Pulse Rate 89 87 91 H Respiratory Rate Blood Pressure 142/97 Blood Pressure [Left] O2 Sat by Pulse 97 96 92 Oximetry 01/09/21 01/09/21 01/09/21 05:45 05:50 05:55 Temperature Pulse Rate 86 86 86 Respiratory Rate Blood Pressure Blood Pressure [Left] O2 Sat by Pulse 97 96 96 Oximetry 01/09/21 01/09/21 01/09/21 06:00 06:05 06:10 Temperature Pulse Rate 90 94 H 88 Respiratory Rate Blood Pressure Blood Pressure [Left] O2 Sat by Pulse 96 95 96 Oximetry 01/09/21 01/09/21 01/09/21 06:12 06:15 06:20 Temperature Pulse Rate 86 90 91 H Respiratory Rate Blood Pressure 140/96 Blood Pressure [Left] O2 Sat by Pulse 94 95 95 Oximetry 01/09/21 01/09/21 01/09/21 06:25 06:30 06:35 Temperature Pulse Rate 95 H 88 88 Respiratory Rate Blood Pressure Blood Pressure [Left] O2 Sat by Pulse 96 96 97 Oximetry 01/09/21 01/09/21 01/09/21 06:40 06:42 06:45 Temperature Pulse Rate 89 88 90 Respiratory Rate Blood Pressure 139/83 Blood Pressure [Left] O2 Sat by Pulse 97 94 96 Oximetry 01/09/21 01/09/21 01/09/21 06:50 06:55 07:00 Temperature Pulse Rate 89 91 H 84 Respiratory Rate Blood Pressure Blood Pressure [Left] O2 Sat by Pulse 96 96 96 Oximetry 01/09/21 01/09/21 01/09/21 07:05 07:10 07:12 Temperature 97.5 F L Pulse Rate 82 95 H 88 Respiratory 18 Rate Blood Pressure 167/111 Blood Pressure [Left] O2 Sat by Pulse 97 97 Oximetry 01/09/21 01/09/21 01/09/21 07:25 07:28 07:30 Temperature Pulse Rate 92 H 91 H 91 H Respiratory Rate Blood Pressure 131/88 Blood Pressure [Left] O2 Sat by Pulse 98 97 Oximetry 01/09/21 01/09/21 01/09/21 07:35 07:40 07:42 Temperature Pulse Rate 85 85 86 Respiratory Rate Blood Pressure 152/104 Blood Pressure [Left] O2 Sat by Pulse 97 97 93 Oximetry 01/09/21 01/09/21 01/09/21 07:45 07:50 07:55 Temperature Pulse Rate 85 87 104 H Respiratory Rate Blood Pressure Blood Pressure [Left] O2 Sat by Pulse 97 97 97 Oximetry 01/09/21 01/09/21 01/09/21 08:00 08:05 08:08 Temperature Pulse Rate 90 88 93 H Respiratory Rate Blood Pressure 129/84 Blood Pressure [Left] O2 Sat by Pulse 97 96 93 Oximetry 01/09/21 01/09/21 01/09/21 08:10 08:12 08:15 Temperature Pulse Rate 91 H 86 92 H Respiratory Rate Blood Pressure 158/105 Blood Pressure [Left] O2 Sat by Pulse 96 96 Oximetry 01/09/21 01/09/21 01/09/21 08:16 08:20 08:25 Temperature Pulse Rate 91 H 89 97 H Respiratory Rate Blood Pressure Blood Pressure [Left] O2 Sat by Pulse 94 97 96 Oximetry 01/09/21 08:30 Temperature Pulse Rate 88 Respiratory Rate Blood Pressure Blood Pressure [Left] O2 Sat by Pulse 91 Oximetry - Exam Breasts: deferred Cardiovascular: Regular rate Lungs: Normal air movement FHR: category 1 Uterine Contraction Monitor Mode: External Cervical Dilatation: 3 (vertex) Cervical Effacement Percentage: 60 (Pitocin @ 4mu/min) station: -4 Uterine Contraction Frequency (min): 5-8 Uterine Contraction Pattern: Irregular Uterine Tone Measurement Phase: Resting Uterine Contraction Intensity: Mild Extremities: edema - Labs Labs: Abnormal Labs 01/07/21 01/07/21 17:04 18:15 AST < 5 L Lactate Dehydrogenase 744 H U Epithel Cells (Auto) 22.0 H Laboratory Results - last 24 hr 01/08/21 09:17 Coronavirus (PCR) Negative
[2021-01-09] MEDS: OXYTOCIN DRIP 30 UNITS/500 ML BAG IV SCH ×2 (09:57→22:12)
[2021-01-09] MEDS: AMPICILLIN/NS 1 GM/50 ML 1 GM/50 ML BAG IV SCH ×3 (10:20→18:48)
--- NOTE | 2021-01-09 14:07 | Progress Note ---
Assessment and Plan - Patient Problems (1) Encounter for induction of labor Current Visit: Yes Status: Acute Plan to address problem: AROM @ 1350 of clear fluids, tolerated well IUPC placed Continue to increase Pitocin as tolerated for MVU of 200 Pain meds as desired Anticipate (2) Pre-eclampsia affecting , antepartum Current Visit: Yes Status: Acute Plan to address problem: Continue to monitor B/Ps Continue B/P meds as directed Notify provider for SBP > 160; DBP > 110 (3) Positive GBS test Current Visit: Yes Status: Acute Plan to address problem: Continue GBS protocol (4) HSV-2 seropositive Current Visit: Yes Status: Acute Subjective - Subjective Date of service: 01/09/21 Principal diagnosis: IOL; Pre-eclampsia Interval history: 25yo, G1 @ 37.2 wks, initiated care with [facility] at 16.1 weeks gestation. Her has been complicated by pre-eclampsia (24hr urine protein - 323mg, co-managed by [facility] specialist), HSV2 seropositive status and GBS positive. She presents to [facility] on 01/07/2021 for scheduled IOL. Reports positive FM. Denies any VB or LOF. Labs: A+, antibody negative; HBsAg/ HCab non-reactive; HIV non-reactive; RPR non- reactive; GC/Chlamydia/Trich negative; 1 hr gtt - 82; GBS positive. Patient reports: movement normal, contractions (tolerable), no new complaints, no loss of fluid, no vaginal bleeding Objective - Vital Signs Vital Signs: Vital Signs - 12hr 01/09/21 01/09/21 01/09/21 02:07 02:12 02:22 Temperature Pulse Rate 91 H 88 94 H Respiratory Rate Blood Pressure 173/113 Blood Pressure [Left] O2 Sat by Pulse 97 97 98 Oximetry 01/09/21 01/09/21 01/09/21 02:27 02:32 02:37 Temperature Pulse Rate 90 91 H 86 Respiratory Rate Blood Pressure Blood Pressure [Left] O2 Sat by Pulse 95 97 98 Oximetry 01/09/21 01/09/21 01/09/21 02:42 02:47 02:52 Temperature Pulse Rate 84 82 88 Respiratory Rate Blood Pressure 168/110 Blood Pressure [Left] O2 Sat by Pulse 91 97 97 Oximetry 01/09/21 01/09/21 01/09/21 02:57 03:02 03:07 Temperature Pulse Rate 82 85 82 Respiratory Rate Blood Pressure Blood Pressure [Left] O2 Sat by Pulse 97 97 97 Oximetry 01/09/21 01/09/21 01/09/21 03:12 03:19 03:21 Temperature Pulse Rate 81 90 81 Respiratory Rate Blood Pressure 179/121 174/127 Blood Pressure [Left] O2 Sat by Pulse 97 98 Oximetry 01/09/21 01/09/21 01/09/21 03:24 03:29 03:34 Temperature Pulse Rate 83 84 87 Respiratory Rate Blood Pressure Blood Pressure [Left] O2 Sat by Pulse 98 98 99 Oximetry 01/09/21 01/09/21 01/09/21 03:39 03:42 03:43 Temperature Pulse Rate 82 85 82 Respiratory Rate Blood Pressure 180/119 Blood Pressure [Left] O2 Sat by Pulse 97 92 Oximetry 01/09/21 01/09/21 01/09/21 03:44 03:48 03:49 Temperature Pulse Rate 88 83 83 Respiratory Rate Blood Pressure 178/115 Blood Pressure [Left] O2 Sat by Pulse 97 98 Oximetry 01/09/21 01/09/21 01/09/21 03:54 03:59 04:04 Temperature Pulse Rate 92 H 91 H 83 Respiratory Rate Blood Pressure 178/115 Blood Pressure [Left] O2 Sat by Pulse 97 96 97 Oximetry 01/09/21 01/09/21 01/09/21 04:09 04:12 04:14 Temperature Pulse Rate 91 H 87 87 Respiratory Rate Blood Pressure 164/112 Blood Pressure [Left] O2 Sat by Pulse 96 91 96 Oximetry 01/09/21 01/09/21 01/09/21 04:24 04:29 04:34 Temperature Pulse Rate 96 H 93 H 89 Respiratory Rate Blood Pressure Blood Pressure [Left] O2 Sat by Pulse 98 97 97 Oximetry 01/09/21 01/09/21 01/09/21 04:40 04:42 04:45 Temperature Pulse Rate 91 H 87 89 Respiratory Rate Blood Pressure 164/110 Blood Pressure [Left] O2 Sat by Pulse 97 90 97 Oximetry 01/09/21 01/09/21 01/09/21 04:50 04:55 05:05 Temperature Pulse Rate 94 H 93 H 95 H Respiratory Rate Blood Pressure Blood Pressure [Left] O2 Sat by Pulse 97 97 97 Oximetry 01/09/21 01/09/21 01/09/21 05:10 05:12 05:15 Temperature Pulse Rate 90 91 H 86 Respiratory Rate Blood Pressure 140/97 Blood Pressure [Left] O2 Sat by Pulse 98 91 97 Oximetry 01/09/21 01/09/21 01/09/21 05:20 05:23 05:25 Temperature 98.0 F Pulse Rate 90 89 87 Respiratory 16 Rate Blood Pressure Blood Pressure 140/97 [Left] O2 Sat by Pulse 97 98 98 Oximetry 01/09/21 01/09/21 01/09/21 05:30 05:35 05:40 Temperature Pulse Rate 85 89 87 Respiratory Rate Blood Pressure Blood Pressure [Left] O2 Sat by Pulse 98 97 96 Oximetry 01/09/21 01/09/21 01/09/21 05:42 05:45 05:50 Temperature Pulse Rate 91 H 86 86 Respiratory Rate Blood Pressure 142/97 Blood Pressure [Left] O2 Sat by Pulse 92 97 96 Oximetry 01/09/21 01/09/21 01/09/21 05:55 06:00 06:05 Temperature Pulse Rate 86 90 94 H Respiratory Rate Blood Pressure Blood Pressure [Left] O2 Sat by Pulse 96 96 95 Oximetry 01/09/21 01/09/21 01/09/21 06:10 06:12 06:15 Temperature Pulse Rate 88 86 90 Respiratory Rate Blood Pressure 140/96 Blood Pressure [Left] O2 Sat by Pulse 96 94 95 Oximetry 01/09/21 01/09/21 01/09/21 06:20 06:25 06:30 Temperature Pulse Rate 91 H 95 H 88 Respiratory Rate Blood Pressure Blood Pressure [Left] O2 Sat by Pulse 95 96 96 Oximetry 01/09/21 01/09/21 01/09/21 06:35 06:40 06:42 Temperature Pulse Rate 88 89 88 Respiratory Rate Blood Pressure 139/83 Blood Pressure [Left] O2 Sat by Pulse 97 97 94 Oximetry 01/09/21 01/09/21 01/09/21 06:45 06:50 06:55 Temperature Pulse Rate 90 89 91 H Respiratory Rate Blood Pressure Blood Pressure [Left] O2 Sat by Pulse 96 96 96 Oximetry 01/09/21 01/09/21 01/09/21 07:00 07:05 07:10 Temperature 97.5 F L Pulse Rate 84 82 95 H Respiratory 18 Rate Blood Pressure Blood Pressure [Left] O2 Sat by Pulse 96 97 97 Oximetry 01/09/21 01/09/21 01/09/21 07:12 07:25 07:28 Temperature Pulse Rate 88 92 H 91 H Respiratory Rate Blood Pressure 167/111 131/88 Blood Pressure [Left] O2 Sat by Pulse 98 Oximetry 01/09/21 01/09/21 01/09/21 07:30 07:35 07:40 Temperature Pulse Rate 91 H 85 85 Respiratory Rate Blood Pressure Blood Pressure [Left] O2 Sat by Pulse 97 97 97 Oximetry 01/09/21 01/09/21 01/09/21 07:42 07:45 07:50 Temperature Pulse Rate 86 85 87 Respiratory Rate Blood Pressure 152/104 Blood Pressure [Left] O2 Sat by Pulse 93 97 97 Oximetry 01/09/21 01/09/21 01/09/21 07:55 08:00 08:05 Temperature Pulse Rate 104 H 90 88 Respiratory Rate Blood Pressure Blood Pressure [Left] O2 Sat by Pulse 97 97 96 Oximetry 01/09/21 01/09/21 01/09/21 08:08 08:10 08:12 Temperature Pulse Rate 93 H 91 H 86 Respiratory Rate Blood Pressure 129/84 158/105 Blood Pressure [Left] O2 Sat by Pulse 93 96 Oximetry 01/09/21 01/09/21 01/09/21 08:15 08:16 08:20 Temperature Pulse Rate 92 H 91 H 89 Respiratory Rate Blood Pressure Blood Pressure [Left] O2 Sat by Pulse 96 94 97 Oximetry 01/09/21 01/09/21 01/09/21 08:25 08:30 08:35 Temperature Pulse Rate 97 H 88 92 H Respiratory Rate Blood Pressure Blood Pressure [Left] O2 Sat by Pulse 96 91 98 Oximetry 01/09/21 01/09/21 01/09/21 08:40 08:43 08:45 Temperature Pulse Rate 96 H 86 93 H Respiratory Rate Blood Pressure 169/111 Blood Pressure [Left] O2 Sat by Pulse 89 96 Oximetry 01/09/21 01/09/21 01/09/21 08:48 08:50 08:55 Temperature Pulse Rate 107 H 90 94 H Respiratory Rate Blood Pressure 158/93 Blood Pressure [Left] O2 Sat by Pulse 85 96 97 Oximetry 01/09/21 01/09/21 01/09/21 09:00 09:05 09:10 Temperature Pulse Rate 106 H 106 H 107 H Respiratory Rate Blood Pressure Blood Pressure [Left] O2 Sat by Pulse 97 96 97 Oximetry 01/09/21 01/09/21 01/09/21 09:12 09:13 09:15 Temperature Pulse Rate 96 H 96 H 97 H Respiratory Rate Blood Pressure 140/93 Blood Pressure [Left] O2 Sat by Pulse 94 95 Oximetry 01/09/21 01/09/21 01/09/21 09:27 09:32 09:35 Temperature Pulse Rate 115 H 109 H 111 H Respiratory Rate Blood Pressure Blood Pressure [Left] O2 Sat by Pulse 98 96 94 Oximetry 01/09/21 01/09/21 01/09/21 09:37 09:42 09:47 Temperature Pulse Rate 107 H 106 H 108 H Respiratory Rate Blood Pressure Blood Pressure [Left] O2 Sat by Pulse 95 97 96 Oximetry 01/09/21 01/09/21 01/09/21 09:50 09:52 09:57 Temperature Pulse Rate 106 H 109 H 105 H Respiratory Rate Blood Pressure 131/82 Blood Pressure [Left] O2 Sat by Pulse 97 97 Oximetry 01/09/21 01/09/21 01/09/21 10:00 10:02 10:07 Temperature Pulse Rate 85 107 H 103 H Respiratory Rate Blood Pressure Blood Pressure [Left] O2 Sat by Pulse 91 97 96 Oximetry 01/09/21 01/09/21 01/09/21 10:12 10:13 10:17 Temperature Pulse Rate 105 H 108 H 101 H Respiratory Rate Blood Pressure 120/73 120/73 Blood Pressure [Left] O2 Sat by Pulse 94 98 Oximetry 01/09/21 01/09/21 01/09/21 10:22 10:27 10:32 Temperature Pulse Rate 102 H 100 H 98 H Respiratory Rate Blood Pressure Blood Pressure [Left] O2 Sat by Pulse 96 96 97 Oximetry 01/09/21 01/09/21 01/09/21 10:37 10:42 10:43 Temperature Pulse Rate 97 H 98 H 96 H Respiratory Rate Blood Pressure 135/88 Blood Pressure [Left] O2 Sat by Pulse 97 95 94 Oximetry 01/09/21 01/09/21 01/09/21 10:47 10:52 10:57 Temperature Pulse Rate 98 H 99 H 97 H Respiratory Rate Blood Pressure Blood Pressure [Left] O2 Sat by Pulse 95 95 96 Oximetry 01/09/21 01/09/21 01/09/21 11:02 11:07 11:12 Temperature Pulse Rate 98 H 98 H 99 H Respiratory Rate Blood Pressure 136/87 Blood Pressure [Left] O2 Sat by Pulse 95 95 94 Oximetry 01/09/21 01/09/21 01/09/21 11:17 11:22 11:27 Temperature Pulse Rate 99 H 102 H 99 H Respiratory Rate Blood Pressure Blood Pressure [Left] O2 Sat by Pulse 95 95 94 Oximetry 01/09/21 01/09/21 01/09/21 11:32 11:34 11:37 Temperature Pulse Rate 98 H 102 H 97 H Respiratory Rate Blood Pressure Blood Pressure [Left] O2 Sat by Pulse 96 93 96 Oximetry 01/09/21 01/09/21 01/09/21 11:42 11:47 11:52 Temperature Pulse Rate 98 H 96 H 97 H Respiratory Rate Blood Pressure 133/83 Blood Pressure [Left] O2 Sat by Pulse 90 95 95 Oximetry 01/09/21 01/09/21 01/09/21 11:57 12:00 12:02 Temperature Pulse Rate 95 H 100 H 97 H Respiratory Rate Blood Pressure Blood Pressure [Left] O2 Sat by Pulse 95 94 96 Oximetry 01/09/21 01/09/21 01/09/21 12:07 12:12 12:17 Temperature Pulse Rate 100 H 97 H 102 H Respiratory Rate Blood Pressure 136/87 Blood Pressure [Left] O2 Sat by Pulse 97 96 98 Oximetry 01/09/21 01/09/21 01/09/21 12:22 12:27 12:32 Temperature Pulse Rate 101 H 98 H 94 H Respiratory Rate Blood Pressure Blood Pressure [Left] O2 Sat by Pulse 97 97 97 Oximetry 01/09/21 01/09/21 01/09/21 12:37 12:42 12:47 Temperature Pulse Rate 94 H 98 H 98 H Respiratory Rate Blood Pressure 143/100 Blood Pressure [Left] O2 Sat by Pulse 97 93 97 Oximetry 01/09/21 01/09/21 01/09/21 12:52 12:57 13:10 Temperature Pulse Rate 96 H 98 H 110 H Respiratory Rate Blood Pressure Blood Pressure [Left] O2 Sat by Pulse 97 97 99 Oximetry 01/09/21 01/09/21 01/09/21 13:13 13:14 13:15 Temperature Pulse Rate 106 H 100 H 104 H Respiratory Rate Blood Pressure 156/103 Blood Pressure [Left] O2 Sat by Pulse 92 96 Oximetry 01/09/21 01/09/21 01/09/21 13:20 13:25 13:30 Temperature Pulse Rate 99 H 101 H 99 H Respiratory Rate Blood Pressure Blood Pressure [Left] O2 Sat by Pulse 97 96 98 Oximetry 01/09/21 01/09/21 01/09/21 13:35 13:40 13:42 Temperature Pulse Rate 94 H 91 H 92 H Respiratory Rate Blood Pressure 180/113 Blood Pressure [Left] O2 Sat by Pulse 98 98 Oximetry 01/09/21 01/09/21 01/09/21 13:45 13:50 13:53 Temperature Pulse Rate 93 H 88 88 Respiratory Rate Blood Pressure 176/112 Blood Pressure [Left] O2 Sat by Pulse 99 99 Oximetry 01/09/21 01/09/21 13:55 14:00 Temperature Pulse Rate 89 100 H Respiratory Rate Blood Pressure Blood Pressure [Left] O2 Sat by Pulse 97 100 Oximetry - Exam Breasts: deferred Cardiovascular: Regular rate Lungs: Normal air movement FHR: category 1 Uterine Contraction Monitor Mode: Internal (IUPC placed without difficulty at 1351) Cervical Dilatation: 4 (vertex) Cervical Effacement Percentage: 60 (Pitocin @ 8mu/min) station: -2 Uterine Contraction Frequency (min): 3-5 Uterine Contraction Pattern: Irregular Uterine Tone Measurement Phase: Resting Uterine Contraction Intensity: Mild - Labs Labs: Abnormal Labs 01/07/21 01/07/21 17:04 18:15 AST < 5 L Lactate Dehydrogenase 744 H U Epithel Cells (Auto) 22.0 H Laboratory Results - last 24 hr 01/08/21 09:17 Coronavirus (PCR) Negative
[2021-01-09] MEDS ORDERED: diphenhydrAMINE 50 MG/ML VIAL IV PRN (16:30)
[2021-01-09] MEDS ORDERED: NalbUPHINE 10 MG/1 ML INJ IV PRN (16:30)
[2021-01-09] MEDS ORDERED: LACTATED RINGERS 250 ML IV SOLN IV ONE (16:30)
[2021-01-09] MEDS ORDERED: ePHEDrine SULFATE 50 MG/1 ML INJ IV PRN (16:30)
[2021-01-09] MEDS ORDERED: NALOXONE 2 MG/2 ML INJ IV PRN (16:30)
[2021-01-09] MEDS ORDERED: fentaNYL-BUPIV 2 MCG/ML-0.125% 200 MCG/100 ML BAG EPIDURAL SCH (17:00)
--- NOTE | 2021-01-09 17:12 | Anesthesia Consultation ---
Anesthesia Consult and Med Hx Date of service: 01/09/21 - Airway Anesthetic Teeth Evaluation: Good ROM Head & Neck: Adequate Mental/Hyoid Distance: Adequate Mallampati Class: Class III Intubation Access Assessment: Probably Good - Pulmonary Exam CTA: Yes - Cardiac Exam Cardiac Exam: RRR - Pre-Operative Health Status ASA Pre-Surgery Classification: ASA2 Proposed Anesthetic Plan: Epidural - Pulmonary Hx Smoking: No Hx Asthma: No COPD: No Hx Pneumonia: No Hx Sleep Apnea: No - Cardiovascular System Hx Hypertension: No Hx Heart Attack/AMI: No Hx Angina: No - Central Nervous System Hx Seizures: No Hx Psychiatric Problems: No - Gastrointestinal Hx Gastroesophageal Reflux Disease: No - Endocrine Hx Renal Disease: No Hx End Stage Renal Disease: No Hx Liver Disease: No Hx Insulin Dependent Diabetes: No Hx Non-Insulin Dependent Diabetes: No Hx Hypothyroidism: No Hx Hyperthyroidism: No - Hematic Hx Anemia: No Hx Sickle Cell Disease: No - Other Systems Hx Alcohol Use: No Hx Obesity: Yes
--- NOTE | 2021-01-09 17:15 | Progress Note ---
Labor Epidural - Labor Epidural Start Time: 16:41 Stop Time: 17:00 Performed by:: IFTIKHAR MAYES (Elena Doan [facility] [place]) Procedure: Patient is requesting epidural for labor and pain. H&P, labs were reviewed. Patient IDed, H&P reviewed, all questions and concerns were answered, and consent was signed. Timeout was performed at bedside. Patient in sitting position. Sterile prep and drape was performed. 3ml of 1% lidocaine skin wheal at L[3]- L [4]. 18-gauge joaquina epidural needle was advanced to loss of resistance with air technique 8cm. Negative CSF negative blood. Epidural catheter advanced to [12] centimeters. [negative] Aspiration [negative] test dose. Sterile dressing applied. Patient tolerated procedure.
[2021-01-09] MEDS ORDERED: hydrALAZINE 20 MG/1 ML INJ IV ONE (17:54)
[2021-01-09 19:52] LABS: Alanine Aminotransferase 10 units/L (7-56); BUN/Creatinine Ratio 14; Blood Urea Nitrogen 7 mg/dL (7-17); Calcium 8.7 mg/dL (8.4-10.2); Hemolysis Index 0
[2021-01-09] MEDS ORDERED: LANOLIN/ZINC/DIMETHICONE (LANSINOH) 7 GM TP PRN (22:07)
[2021-01-09] MEDS ORDERED: diphenhydrAMINE 25 MG CAP PO PRN (22:07)
[2021-01-09] MEDS ORDERED: WITCH HAZEL/ GLYCERIN PAD TP PRN (22:07)
[2021-01-09] MEDS ORDERED: MAGNESIUM HYDROXIDE (MOM) ORAL LIQD UDC PO PRN (22:07)
[2021-01-09] MEDS ORDERED: PROMETHAZINE 25 MG TAB PO PRN (22:07)
--- NOTE | 2021-01-09 22:15 | Procedure Note ---
OB Delivery Note - Delivery Date of Delivery: 01/09/21 (2150) Surgeon: RICHMOND BLAKE (CNM) Estimated blood loss: 200cc - Vaginal Delivery presentation: vertex Delivery position: OA (FRANCESCO) Intrapartum events: meconium, preeclampsia Delivery induction: oxytocin Delivery augmentation: rupture of membranes (AROM @ 1350) Delivery monitor: external FHT, internal uterine Route of delivery: Delivery placenta: spontaneous (2153, watson) Delivery cord: nuchal cord (x 1, reduced at perineum) Episiotomy: none Delivery laceration: other (left baldomero-urethral, no repaire required) Anesthesia: epidural Delivery comments: of quiet, slightly stunned female infant placed directly to maternal abdomen. Cord double clamped, cut by FOB immediately, baby handed over to awaiting SHARON RN for evaluation. Placenta spontaneously delivered, disposed per hospital policy. Uterus firm @ U-2, hemostasis maintained. Perineum intact. Mother and baby safe, stable and left in care of RN. - Infant A at 1 minute: 7 at 5 minutes: 9 Infant Gender: Female (Weight: 2539 gms (5lbs 9.5ozs) 18.5 inches)
[2021-01-09] MEDS: IBUPROFEN 600 MG TAB PO SCH (22:46)
[2021-01-10] MEDS: IBUPROFEN 600 MG TAB PO SCH ×4 (05:16→23:34)
--- NOTE | 2021-01-10 07:39 | Progress Note ---
Assessment and Plan A: ~ 10 hours s/p at 37 wks after induction for preeclampsia without severe features P: Routine care Monitor BP curve, and for signs of severe disease Subjective - Subjective Date of service: 01/10/21 Principal diagnosis: Preeclampsia without severe features Interval history: Pt is tired, but has no other complaints. Patient reports: appetite normal, voiding normally, pain well controlled, ambulating normally : doing well Objective - Vital Signs Latest vital signs: Vital Signs Temp Pulse Resp BP Pulse Ox 01/10/21 06:16 18 01/10/21 05:16 18 01/10/21 04:48 98.2 F 108 H 20 134/90 94 01/10/21 00:41 98.7 F 97 H 18 136/94 97 01/09/21 23:46 18 01/09/21 23:45 107 H 96 01/09/21 23:40 108 H 97 01/09/21 23:36 101 H 125/73 01/09/21 23:35 101 H 96 01/09/21 23:30 98 H 96 01/09/21 23:27 112 H 94 01/09/21 23:25 100 H 97 01/09/21 23:21 86 143/82 01/09/21 23:20 99 H 97 01/09/21 23:15 98 H 94 01/09/21 23:10 93 H 97 01/09/21 23:06 96 H 142/81 01/09/21 23:05 94 H 97 01/09/21 23:00 96 H 96 01/09/21 22:55 94 H 139/77 96 01/09/21 22:52 115 H 175/115 01/09/21 22:50 97 H 98 01/09/21 22:46 101 H 16 149/86 01/09/21 22:45 97 H 97 01/09/21 22:41 90 149/86 01/09/21 22:40 101 H 96 01/09/21 22:37 100 H 155/88 01/09/21 22:35 97 H 97 01/09/21 22:31 106 H 128/81 01/09/21 22:30 106 H 98 01/09/21 22:25 102 H 97 01/09/21 22:20 108 H 97 01/09/21 22:15 117 H 98 01/09/21 22:10 119 H 99 01/09/21 22:07 122 H 146/82 01/09/21 22:05 124 H 98 01/09/21 22:00 127 H 98 01/09/21 21:55 112 H 98 01/09/21 21:50 127 H 100 01/09/21 21:46 115 H 140/73 01/09/21 21:45 108 H 100 01/09/21 21:40 108 H 100 01/09/21 21:35 130 H 100 01/09/21 21:32 98.9 F 01/09/21 21:30 115 H 100 01/09/21 21:25 111 H 100 01/09/21 21:20 121 H 100 01/09/21 21:18 117 H 116/70 01/09/21 21:15 108 H 100 01/09/21 21:10 113 H 100 01/09/21 21:05 108 H 100 01/09/21 21:00 104 H 100 01/09/21 20:55 110 H 100 01/09/21 20:50 114 H 99 01/09/21 20:47 59 L 129/81 01/09/21 20:45 114 H 98 01/09/21 20:40 108 H 99 01/09/21 20:35 112 H 99 01/09/21 20:30 116 H 97 01/09/21 20:25 98 H 96 01/09/21 20:20 105 H 97 01/09/21 20:18 103 H 119/64 01/09/21 20:15 111 H 97 01/09/21 20:10 95 H 96 01/09/21 20:05 96 H 96 01/09/21 20:00 96 H 97 01/09/21 19:55 98 H 97 01/09/21 19:50 94 H 97 01/09/21 19:46 93 H 126/75 01/09/21 19:45 95 H 99 01/09/21 19:40 107 H 100 01/09/21 19:35 90 99 01/09/21 19:31 91 H 125/72 01/09/21 19:30 89 99 01/09/21 19:25 89 100 01/09/21 19:20 94 H 99 01/09/21 19:17 90 118/68 01/09/21 19:15 88 99 01/09/21 19:10 87 99 01/09/21 19:05 88 98 01/09/21 19:02 86 123/72 01/09/21 19:00 84 99 01/09/21 18:55 84 99 01/09/21 18:50 87 99 01/09/21 18:46 87 121/67 01/09/21 18:45 84 100 01/09/21 18:40 85 99 01/09/21 18:35 84 100 01/09/21 18:32 85 125/74 01/09/21 18:30 86 99 01/09/21 18:25 84 100 01/09/21 18:20 85 99 01/09/21 18:17 83 133/77 01/09/21 18:15 85 100 01/09/21 18:10 84 99 01/09/21 18:05 82 180/105 100 01/09/21 18:03 81 171/96 01/09/21 18:00 98.2 F 82 184/105 100 01/09/21 17:55 83 100 01/09/21 17:50 83 100 01/09/21 17:47 83 180/102 01/09/21 17:45 83 100 01/09/21 17:42 82 184/108 01/09/21 17:40 84 98 01/09/21 17:39 83 169/105 01/09/21 17:35 87 100 01/09/21 17:32 85 173/109 01/09/21 17:30 87 99 01/09/21 17:25 89 99 01/09/21 17:20 89 97 01/09/21 17:15 90 139/81 98 01/09/21 17:13 89 147/85 01/09/21 17:11 90 142/81 01/09/21 17:10 90 97 01/09/21 17:09 88 142/84 01/09/21 17:07 92 H 132/78 01/09/21 17:05 95 H 98 01/09/21 17:01 94 H 190/77 01/09/21 17:00 95 H 99 01/09/21 16:59 95 H 174/77 01/09/21 16:57 95 H 185/79 01/09/21 16:55 98 H 169/89 100 01/09/21 16:53 95 H 167/107 01/09/21 16:51 93 H 172/108 01/09/21 16:50 93 H 99 06 16:49 100 H 175/107 01/09/21 16:48 69 93 01/09/21 16:47 127 H 189/132 01/09/21 16:45 91 H 98 01/09/21 16:42 93 H 189/124 01/09/21 16:40 92 H 99 01/09/21 16:35 91 H 98 01/09/21 16:30 91 H 99 01/09/21 16:25 91 H 99 01/09/21 16:20 87 98 01/09/21 16:15 92 H 98 01/09/21 16:13 85 183/119 01/09/21 16:10 89 98 01/09/21 16:05 91 H 100 01/09/21 16:00 98.1 F 86 99 01/09/21 15:55 93 H 99 01/09/21 15:50 91 H 99 01/09/21 15:45 93 H 98 01/09/21 15:42 96 H 141/98 01/09/21 15:40 96 H 97 01/09/21 15:35 91 H 98 01/09/21 15:30 92 H 99 01/09/21 15:25 96 H 98 01/09/21 15:20 100 H 98 01/09/21 15:15 97 H 98 01/09/21 15:12 95 H 170/108 01/09/21 15:10 91 H 99 01/09/21 15:05 95 H 99 01/09/21 15:00 95 H 99 01/09/21 14:55 92 H 98 01/09/21 14:50 96 H 98 01/09/21 14:45 92 H 98 01/09/21 14:42 90 156/87 01/09/21 14:40 94 H 98 01/09/21 14:39 90 175/110 01/09/21 14:37 94 H 94 01/09/21 14:35 94 H 97 01/09/21 14:30 93 H 98 01/09/21 14:25 94 H 98 01/09/21 14:20 93 H 97 01/09/21 14:15 93 H 97 01/09/21 14:12 92 H 156/106 92 01/09/21 14:10 101 H 98 01/09/21 14:05 90 98 01/09/21 14:00 97.8 F 100 H 100 01/09/21 13:55 89 97 01/09/21 13:53 88 176/112 01/09/21 13:50 88 99 01/09/21 13:45 93 H 99 01/09/21 13:42 92 H 180/113 01/09/21 13:40 91 H 98 01/09/21 13:35 94 H 98 01/09/21 13:30 99 H 98 01/09/21 13:25 101 H 96 01/09/21 13:20 99 H 97 01/09/21 13:15 104 H 96 01/09/21 13:14 100 H 156/103 01/09/21 13:13 106 H 92 01/09/21 13:10 110 H 99 01/09/21 12:57 98 H 97 01/09/21 12:52 96 H 97 01/09/21 12:47 98 H 97 01/09/21 12:42 98 H 143/100 93 01/09/21 12:37 94 H 97 01/09/21 12:32 94 H 97 01/09/21 12:27 98 H 97 01/09/21 12:22 101 H 97 01/09/21 12:17 102 H 98 01/09/21 12:12 97 H 136/87 96 01/09/21 12:07 100 H 97 01/09/21 12:02 97 H 96 01/09/21 12:00 100 H 94 01/09/21 11:57 95 H 95 01/09/21 11:52 97 H 95 01/09/21 11:47 96 H 95 01/09/21 11:42 98 H 133/83 90 01/09/21 11:37 97 H 96 01/09/21 11:34 102 H 93 01/09/21 11:32 98 H 96 01/09/21 11:27 99 H 94 01/09/21 11:22 102 H 95 01/09/21 11:17 99 H 95 01/09/21 11:12 99 H 136/87 94 01/09/21 11:07 98 H 95 01/09/21 11:02 98 H 95 06/03/21 11:00 97.5 F L 01/09/21 10:57 97 H 96 01/09/21 10:52 99 H 95 01/09/21 10:47 98 H 95 01/09/21 10:43 96 H 135/88 94 01/09/21 10:42 98 H 95 01/09/21 10:37 97 H 97 01/09/21 10:32 98 H 97 01/09/21 10:27 100 H 96 01/09/21 10:22 102 H 96 01/09/21 10:17 101 H 98 01/09/21 10:13 108 H 120/73 01/09/21 10:12 105 H 120/73 94 01/09/21 10:07 103 H 96 01/09/21 10:02 107 H 97 01/09/21 10:00 97.5 F L 85 91 01/09/21 09:57 105 H 97 01/09/21 09:52 109 H 97 01/09/21 09:50 106 H 131/82 01/09/21 09:47 108 H 96 01/09/21 09:42 106 H 97 01/09/21 09:37 107 H 95 01/09/21 09:35 111 H 94 01/09/21 09:32 109 H 96 01/09/21 09:27 115 H 98 01/09/21 09:15 97 H 95 01/09/21 09:13 96 H 140/93 01/09/21 09:12 96 H 94 01/09/21 09:10 107 H 97 01/09/21 09:05 106 H 96 01/09/21 09:00 106 H 97 01/09/21 08:55 94 H 97 01/09/21 08:50 90 158/93 96 01/09/21 08:48 107 H 85 01/09/21 08:45 93 H 96 01/09/21 08:43 86 169/111 01/09/21 08:40 96 H 89 01/09/21 08:35 92 H 98 01/09/21 08:30 88 91 01/09/21 08:25 97 H 96 01/09/21 08:20 89 97 01/09/21 08:16 91 H 94 01/09/21 08:15 92 H 96 01/09/21 08:12 86 158/105 01/09/21 08:10 91 H 96 01/09/21 08:08 93 H 129/84 93 01/09/21 08:05 88 96 01/09/21 08:00 90 97 01/09/21 07:55 104 H 97 01/09/21 07:50 87 97 01/09/21 07:45 85 97 01/09/21 07:42 86 152/104 93 01/09/21 07:40 85 97 Intake and Output 01/09/21 01/10/21 01/10/21 22:59 06:59 14:59 Intake Total 127.2 480 Output Total 1000 500 Balance -872.8 -20 Intake: IV 127.2 AMPICILLIN/NS 1 GM/50 ML 50 1 gm In 50 ml @ 100 mls/ hr IV Q4H KAT Rx#: [id number] PITOCin/NS 30 UNIT/500ML 77.2 30 units In 500 ml @ 40 mls/hr IV TITR KAT Rx#: [id number] Oral 480 Output: Urine 1000 500 Indwelling Catheter 1000 Void 500 Other: Total, Intake Amount 480 Total, Output Amount 1000 300 # Voids Void 1 Estimated Blood Loss 200 - Exam Breasts: Present: deferred Abdomen: Present: soft Uterus: Present: fundal height at umbilicus Extremities: Present: edema (1+) - Labs Labs: Abnormal lab results 01/09/21 Range/Units 19:13 Carbon Dioxide 21 L (22-30) mmol/L Creatinine 0.5 L (0.6-1.2) mg/dL Total Protein 5.9 L (6.3-8.2) g/dL Albumin 3.0 L (3.9-5) g/dL
--- NOTE | 2021-01-10 08:58 | Post Anesthesia Evaluation ---
- Post Anesthesia Evaluation Patient Participated: Yes Airway Patent: Yes Stable Respiratory Function: Yes Nausea/Vomiting: No Temp > 96.8F: Yes Pain Manageable: Yes Adequeate Hydration: Yes Anesthesia Complications: No Block Receding Appropriately: Yes Patient on Ventilator: No
[2021-01-10] MEDS: PRENATAL VIT27-FE FUMARATE-FOLIC ACID VIT TAB PO SCH (09:33)
[2021-01-10 10:59] LABS: Hemoglobin 9.2 gm/dl (10.1-14.3)
--- NOTE | 2021-01-10 14:15 | Event Note ---
Date: 01/10/21 RN notified MD warehouse distribution manager of elevated blood pressures 150/100. Pt denies headache, blurry vision, RUQ pain. PIH labs ordered. Pt did receive a one time dose of labetalol last night. Labetalol resumed. Continue to monitor clinically.
[2021-01-10 16:14] LABS: Hematocrit 28.9 % (30.3-42.9); Hemoglobin 9.3 gm/dl (10.1-14.3); Mean Corpuscular HGB Conc 32 % (30-34); Mean Corpuscular Volume 91 fl (79-97); Platelet Count 333 K/mm3 (140-440); Red Blood Count 3.16 M/mm3 (3.65-5.03); Red Cell Distribution Width 14.4 % (13.2-15.2)
[2021-01-10 16:38] LABS: Alanine Aminotransferase 12 units/L (7-56)
[2021-01-11] MEDS ORDERED: TETANUS,DIPH,PERTUSS(ACELL) VACCINE 0.5 ML SYRINGE IM ONE (06:00)
[2021-01-11] MEDS: IBUPROFEN 600 MG TAB PO SCH ×2 (06:36→12:10)
--- NOTE | 2021-01-11 09:03 | Progress Note ---
Assessment and Plan A: PPD#2 s/p at 37 wks after induction for preeclampsia without severe features; on Labetalol 100 mg BID P: Consider discharge today with follow up in 1 wk for BP check Subjective - Subjective Date of service: 01/11/21 Principal diagnosis: Preeclampsia without severe features Interval history: Pt feels well this morning. Right breast with tender area where baby latched incorrectly. Otherwise denies headache, blurry vision or RUQ pain. Patient reports: appetite normal, voiding normally, pain well controlled, ambulating normally, no dizzy ambulation [place]: doing well Objective - Vital Signs Latest vital signs: Vital Signs Temp Pulse Resp BP BP Pulse Ox 01/11/21 08:29 98.3 F 90 20 153/95 01/11/21 05:38 98.0 F 98 H 18 134/85 98 01/11/21 01:25 98.2 F 86 18 130/89 97 01/10/21 21:57 91 H 155/100 01/10/21 21:55 91 H 155/100 01/10/21 21:33 98.5 F 95 H 14 141/87 98 01/10/21 16:30 98.1 F 95 H 18 147/96 98 01/10/21 15:40 98 H 143/97 01/10/21 12:41 98 H 142/98 98 01/10/21 12:27 98.1 F 94 H 18 150/101 95 Intake and Output 01/10/21 01/11/21 01/11/21 22:59 06:59 14:59 Intake Total 240 420 320 Balance 240 420 320 Intake: Oral 320 Intake, Free Water 240 420 Other: Total, Intake Amount 320 # Voids Void 2 1 1 - Exam Breasts: Present: deferred Abdomen: Present: soft (obese ) Uterus: Present: fundal height below umbilicus Extremities: Present: edema (1+ ) - Labs Labs: Abnormal lab results 01/10/21 01/10/21 01/10/21 Range/Units 10:42 15:56 15:56 WBC 14.1 H (4.5-11.0) K/mm3 RBC 3.16 L (3.65-5.03) M/mm3 Hgb 9.2 L 9.3 L (10.1-14.3) gm/dl Hct 28.0 L 28.9 L (30.3-42.9) % Lactate Dehydrogenase 259 H (91-180) units/L
--- NOTE | 2021-01-11 09:06 | Discharge Summary ---
Providers - Providers Date of Admission: 01/07/21 15:26 Date of discharge: 01/11/21 Attending physician: PINEDA MANCIA 01/09/21 22:09 Consult to Evidence Custodian [CONS] Routine Reason For Exam: assistance with , SNS Primary care physician: MARVA ALVAREZ MD Hospitalization Reason for admission: induction of labor Delivery: Procedure details: Please see delivery note. Episiotomy: none Laceration: other (L periurethral hemostatic without repair ) Other procedures: none complications: none Discharge diagnosis: IUP at term delivered baby: female Hospital course: Pt was admitted for induction of labor secondary to preeclampsia without severe features at 37 weeks. She went on to have a spontaneous vaginal delivery which she tolerated well. During her course she developed elevated blood pressures but had normal HELLP labs. She was started on labetalol 200 mg twice daily. She met discharge criteria on day #2 and will follow-up in the office in 1 week for blood pressure check. Condition at discharge: Stable Disposition: TO HOME OR SELFCARE - Discharge Diagnoses (1) Term of female Status: Acute (2) Obesity (BMI 35.0-39.9 without comorbidity) Status: Acute (3) Anemia Status: Acute Qualifiers: Anemia type: unspecified type Qualified Code(s): D64.9 - Anemia, unspecified (4) Encounter for induction of labor Status: Acute (5) Pre-eclampsia affecting , antepartum Status: Acute (6) Elevated blood pressure affecting in third trimester, antepartum Status: Acute Plan - Discharge Medications Prescriptions: Ferrous Sulfate [Feosol 325 MG tab] 325 mg PO BID #60 tablet labetaloL [Labetalol 100mg TAB] 100 mg PO BID #60 tablet Ibuprofen [Motrin] 800 mg PO Q8HR PRN #30 tablet PRN Reason: Pain, Moderate (4-6) HYDROcodone/APAP 5-325 [[place] 5/325] 1 each PO Q6HR PRN #30 tablet PRN Reason: Pain - Provider Discharge Summary Activity: routine, no sex for 6 weeks, no heavy lifting 4 weeks, no strenuous exercise Diet: routine Instructions: routine Additional instructions: [] Smoking cessation referral if applicable(refer to patient education folder for contact #) [] Refer to [facility]'s [facility] Booklet Call your doctor immediately for: * Fever > 100.5 * Heavy vaginal bleeding ( >1 pad per hour) * Severe persistent headache * Shortness of breath * Reddened, hot, painful area to leg or breast * Drainage or odor from incision. * Keep incision clean and dry at all times and follow doctor's instructions regarding bathing/showering - Follow up plan Follow up: RITO ZAPAAT, NUT SORTER OPERATOR [Advanced Practice Nurse] - 7 Days (Please schedule an blood pressure check within one week of discharge. )
[2021-01-11] MEDS: PRENATAL VIT27-FE FUMARATE-FOLIC ACID VIT TAB PO SCH (10:14)
[2021-01-11 17:10] VITALS: BP 148/87
== END 2021-01-11 15:45 | disposition home or self-care (01) | DRG 774 ==
LOC: LD 15:26 → OB 01-10 01:04
PROVIDERS: ADMIT Obstetrics & Gynecology; ATTEND Obstetrics & Gynecology
PROC: 3E0R3BZ Introduction of Anesthetic Agent into Spinal Canal, Percutaneous Approach (ICD-10-PCS; 2021-01-08)
PROC: 00HU33Z Insertion of Infusion Device into Spinal Canal, Percutaneous Approach (ICD-10-PCS; 2021-01-08)
PROC: 10907ZC Drainage of Amniotic Fluid, Therapeutic from Products of Conception, Via Natural or Artificial Opening (ICD-10-PCS; principal; 2021-01-09)
PROC: 3E033VJ Introduction of Other Hormone into Peripheral Vein, Percutaneous Approach (ICD-10-PCS; 2021-01-09)
PROC: 10E0XZZ Delivery of Products of Conception, External Approach (ICD-10-PCS; 2021-01-09)
DX: O14.94 Unspecified pre-eclampsia, complicating childbirth (principal); O98.52 Other viral diseases complicating childbirth; O99.824 Streptococcus B carrier state complicating childbirth; B00.9 Herpesviral infection, unspecified; O99.214 Obesity complicating childbirth; E66.9 Obesity, unspecified; D64.9 Anemia, unspecified; Z20.822 Contact with and (suspected) exposure to COVID-19; Z3A.37 37 weeks gestation of pregnancy; Z37.0 Single live birth; O77.0 Labor and delivery complicated by meconium in amniotic fluid
CPT/HCPCS: 36415; 59200; 80053; 81001; 82565; 83615; 84450; 84460; 84550; 85014; 85018; 85027; 86592; 86850; 86900; 86901; 90471; 90715; 96360; 96374; G0378; A6250; J0290; J0360; J2405; J2590; J7120; U0003

== ENCOUNTER 2021-01-14 22:10 | Emergency (ER) | payer OTHER ==
[2021-01-14 22:21] VITALS: BP 161/115
== END 2021-01-14 23:00 | disposition left against medical advice (07) ==
LOC: ED 22:10
DX: R51.9 Headache, unspecified (principal); Z53.21 Procedure and treatment not carried out due to patient leaving prior to being seen by health care provider

== ENCOUNTER 2021-01-15 12:23 | Inpatient (IN) | payer BC, OTHER ==
[2021-01-15 14:25] LABS: Bilirubin,Urine NEG (Negative); Blood,Urine LG (Negative); Color,Urine Straw (Yellow); Urobilinogen,Urine < 2.0 mg/dL (<2.0)
[2021-01-15 15:24] LABS: Basophils % (Auto) 0.6 % (0.0-1.8); Eosinophils # (Auto) 0.2 K/mm3 (0.0-0.4); Eosinophils % (Auto) 2.4 % (0.0-4.3); Hematocrit 34.5 % (30.3-42.9); Hemoglobin 11.7 gm/dl (10.1-14.3); Lymphocytes # (Auto) 1.3 K/mm3 (1.2-5.4); Lymphocytes % (Auto) 19.5 % (13.4-35.0); Mean Corpuscular HGB Conc 34 % (30-34); Mean Corpuscular Volume 91 fl (79-97); Monocytes # (Auto) 0.6 K/mm3 (0.0-0.8); Monocytes % (Auto) 8.2 % (0.0-7.3); Platelet Count 435 K/mm3 (140-440); Red Blood Count 3.79 M/mm3 (3.65-5.03); Red Cell Distribution Width 14.9 % (13.2-15.2)
[2021-01-15 15:35] LABS: Alanine Aminotransferase 201 units/L (7-56); Albumin 3.8 g/dL (3.9-5); BUN/Creatinine Ratio 10; Blood Urea Nitrogen 7 mg/dL (7-17); Calcium 9.6 mg/dL (8.4-10.2); Hemolysis Index 5
[2021-01-16 18:43] VITALS: BP 113/65
== END 2021-01-16 19:50 | disposition home or self-care (01) | DRG 776 ==
LOC: ED 12:23 → LD 14:23 → OBSVTOIN 01-16 13:54
PROVIDERS: ADMIT Obstetrics & Gynecology; ATTEND Obstetrics & Gynecology
DX: O14.15 Severe pre-eclampsia, complicating the puerperium (principal); O98.33 Other infections with a predominantly sexual mode of transmission complicating the puerperium; O99.215 Obesity complicating the puerperium
CPT/HCPCS: 36415; 70450; 80053; 81001; 83735; 85025; 87086; 93970; 96365; 96375; 99211; G0378; G0463; J0360; J2270; J3475; J7120